=== PATIENT | female | born 1980 | race Caucasian/White ===

== ENCOUNTER 2017-03-31 22:13 | Emergency (ER) | payer MEDICAID ==
[2017-03-31] MEDS ORDERED: SODIUM CHLORIDE 0.9% 1,000 ML IV ONE (23:01)
[2017-03-31] MEDS ORDERED: ONDANSETRON 4 MG ODT STARTER PACK 2 TAB BTL PO STA (23:01)
[2017-03-31] MEDS ORDERED: ORPHENADRINE 30 MG/ML 2 ML VIAL IVP STA (23:01)
[2017-03-31] MEDS ORDERED: KETOROLAC 30 MG/ML 1 ML VIAL IVP STA (23:01)
[2017-03-31] MEDS: SODIUM CHLORIDE 0.9% 1,000 ML IV SCH (23:23)
[2017-03-31 23:43] LABS: Basophils % (A) 1 %; CH 29.2; CHCM 34.3; Eosinophils % (A) 0 %; HCT 43.4 % (34.0-46.0); HGB 14.4 gm/dL (11.4-16.0); Luc # (Auto) 0.13; Luc % (Auto) 2; Lymphocytes # (A) 0.8 k/uL (1.0-4.8); Lymphocytes % (A) 12 %; MCH 28.5 pg (25.0-35.0); MCHC 33.2 g/dL (31.0-37.0); MCV 85.8 fL (80.0-100.0); Monocytes # (A) 0.3 k/uL (0-1.0); Monocytes % (A) 5 %; Neutrophils # (A) 5.1 k/uL (1.3-7.7); Neutrophils % (A) 80 %; RBC 5.06 m/uL (3.80-5.40); RDW 13.1 % (11.5-15.5); WBC 6.4 k/uL (3.8-10.6); WBC (Perox) 6.22
[2017-03-31 23:54] LABS: ALT 33 U/L (9-52); AST 21 U/L (14-36); Alkaline Phosphatase 122 U/L (38-126); Anion Gap 12 mmol/L; Blood Urea Nitrogen 11 mg/dL (7-17); Calcium 9.6 mg/dL (8.4-10.2); Carbon Dioxide 20 mmol/L (22-30); Chloride 110 mmol/L (98-107); Glucose 104 mg/dL (74-99); Non-African American GFR(MDRD) >60 (>60 ml/min/1.73 sqM); Potassium 4.3 mmol/L (3.5-5.1); Sodium 142 mmol/L (137-145); Total Bilirubin 0.4 mg/dL (0.2-1.3); Total Protein 8.2 g/dL (6.3-8.2)
[2017-04-01] MEDS ORDERED: ONDANSETRON 4 MG ODT STARTER PACK 2 TAB BTL PO STA (00:07)
--- NOTE | 2017-04-01 00:07 | ED ---
Headache HPI - General Chief Complaint: Headache Stated Complaint: Migraine Time Seen by Provider: 03/31/17 22:31 Source: RN notes reviewed, old records reviewed Mode of arrival: ambulatory Limitations: no limitations - History of Present Illness Initial Comments: This is a pleasant 36 year old female with chief complaint of migraine headache for 2 days. She states she has a history of MS, and sees her neurologist Dr. Ho. Patient states that she does not want any imaging studies today, she states that she has a MRI scheduled in a few weeks. She reports vomiting and nausea. she states that the headache is over the frontal lobe and around left parietal region. Denies any fever or chills. She states that she gets these migraines very common, and usually they are resolved with toradol and zofran. Patient denies having any nausea medication at home. - Related Data Home Medications Medication Instructions Recorded Confirmed Butalb/Acetaminophen/Caffeine 1 - 2 tab PO Q6H PRN 04/26/16 03/31/17 [Fioricet 50-325-40 mg Tablet] Lacosamide [Vimpat] 100 mg PO BID 04/26/16 03/31/17 Venlafaxine HCl [Venlafaxine HCl 75 mg PO DAILY 04/26/16 03/31/17 ER] Levothyroxine Sodium [Synthroid] 25 mcg PO DAILY 07/09/16 03/31/17 SUMAtriptan SUCCINATE [Imitrex] 4 mg SQ DIRECTED PRN 07/09/16 03/31/17 Sodium Chloride [[place]] 1 spray EA NOSTRIL Q8H PRN 07/09/16 03/31/17 Verapamil HCl [Verapamil ER] 120 mg PO HS 07/09/16 03/31/17 Previous Rx's Medication Instructions Recorded Albuterol Nebulized [Ventolin 2.5 mg INHALATION Q6H #25 nebu 07/09/16 Nebulized] Ondansetron Odt [Zofran Odt] 4 mg PO Q8HR PRN #12 tab 04/01/17 Allergies Allergy/AdvReac Type Severity Reaction Status Date / Time tramadol Allergy Rapid Verified 07/09/16 15:12 Heart Rate Review of Systems ROS Statement: Those systems with pertinent positive or pertinent negative responses have been documented in the HPI. ROS Other: All systems not noted in ROS Statement are negative. Constitutional: Denies: fever, chills Eyes: Denies: eye pain ENT: Denies: ear pain, throat pain Respiratory: Denies: cough, dyspnea Cardiovascular: Reports: chest pain. Denies: palpitations Endocrine: Denies: fatigue, heat or cold intolerance Gastrointestinal: Reports: nausea, vomiting. Denies: abdominal pain Genitourinary: Denies: urgency, dysuria Musculoskeletal: Denies: back pain Skin: Denies: rash, lesions Neurological: Reports: headache. Denies: weakness, numbness, paresthesias, confusion, abnormal gait, vertigo Psychiatric: Denies: anxiety, depression Hematological/Lymphatic: Denies: easy bleeding Past Medical History Past Medical History: Asthma Additional Past Medical History / Comment(s): Sjogrens, migraines History of Any Multi-Drug Resistant Organisms: None Reported Past Surgical History: Cholecystectomy, Orthopedic Surgery Past Psychological History: No Psychological Hx Reported Smoking Status: Never smoker Past Alcohol Use History: None Reported Past Drug Use History: None Reported General Exam Limitations: no limitations General appearance: alert, in no apparent distress Head exam: Present: atraumatic, normocephalic, normal inspection Eye exam: Present: normal appearance, PERRL, EOMI. Absent: scleral icterus, conjunctival injection, periorbital swelling Pupils: Present: normal accommodation. Absent: irregular ENT exam: Present: normal exam, mucous membranes moist Neck exam: Present: normal inspection. Absent: tenderness, meningismus, lymphadenopathy Respiratory exam: Present: normal lung sounds bilaterally. Absent: respiratory distress, wheezes, rales, rhonchi, stridor Cardiovascular Exam: Present: regular rate, normal rhythm, normal heart sounds. Absent: systolic murmur, diastolic murmur, rubs, gallop, clicks GI/Abdominal exam: Present: soft, normal bowel sounds. Absent: distended, tenderness, guarding, rebound, rigid Extremities exam: Present: normal inspection, full ROM, normal capillary refill. Absent: tenderness, pedal edema, joint swelling, calf tenderness Back exam: Present: normal inspection Neurological exam: Present: alert, oriented X3, CN II-XII intact Psychiatric exam: Present: normal affect, normal mood Skin exam: Present: warm, dry, intact, normal color. Absent: rash Course Vital Signs 03/31/17 04/01/17 22:19 00:22 Temperature 98.5 F 98.3 F Pulse Rate 86 82 Respiratory 20 16 Rate Blood Pressure 136/72 116/76 O2 Sat by Pulse 98 96 Oximetry Medical Decision Making - Medical Decision Making This is a pleasant 36 year old female with chief complaint of migraine headache for 2 days. She states she has a history of MS, and sees her neurologist Dr. Ho. Patient states that she does not want any imaging studies today, she states that she has a MRI scheduled in a few weeks. She reports vomiting and nausea. she states that the headache is over the frontal lobe and around left parietal region. Denies any fever or chills. She states that she gets these migraines very common, and usually they are resolved with toradol and zofran. Patient denies having any nausea medication at home. Patient given IV fuids, toradol, and zofran and norflex. She states that she feels much better. She has no neurological deficits. Patient aayush be discharged with nausea medication, and advised to follow up with neurologist. PAtient agrees to treatment plana nd will comply. - Lab Data Result diagrams: 03/31/17 23:19 03/31/17 23:19 Lab Results 03/31/17 03/31/17 Range/Units 23:19 23:19 WBC 6.4 (3.8-10.6) k/uL RBC 5.06 (3.80-5.40) m/uL Hgb 14.4 (11.4-16.0) gm/dL Hct 43.4 (34.0-46.0) % MCV 85.8 (80.0-100.0) fL MCH 28.5 (25.0-35.0) pg MCHC 33.2 (31.0-37.0) g/dL RDW 13.1 (11.5-15.5) % Plt Count 263 (150-450) k/uL Neutrophils % 80 % Lymphocytes % 12 % Monocytes % 5 % Eosinophils % 0 % Basophils % 1 % Neutrophils # 5.1 (1.3-7.7) k/uL Lymphocytes # 0.8 L (1.0-4.8) k/uL Monocytes # 0.3 (0-1.0) k/uL Eosinophils # 0.0 (0-0.7) k/uL Basophils # 0.0 (0-0.2) k/uL Sodium 142 (137-145) mmol/L Potassium 4.3 (3.5-5.1) mmol/L Chloride 110 H (98-107) mmol/L Carbon Dioxide 20 L (22-30) mmol/L Anion Gap 12 mmol/L BUN 11 (7-17) mg/dL Creatinine 0.60 (0.52-1.04) mg/dL Est GFR (MDRD) Af Amer >60 (>60 ml/min/1.73 sqM) Est GFR (MDRD) Non-Af >60 (>60 ml/min/1.73 sqM) Glucose 104 H (74-99) mg/dL Calcium 9.6 (8.4-10.2) mg/dL Total Bilirubin 0.4 (0.2-1.3) mg/dL AST 21 (14-36) U/L ALT 33 (9-52) U/L Alkaline Phosphatase 122 (38-126) U/L Total Protein 8.2 (6.3-8.2) g/dL Albumin 4.5 (3.5-5.0) g/dL Disposition Clinical Impression: Migraine, Nausea Disposition: HOME SELF-CARE Condition: Good Instructions: Acute Headache (ED) Additional Instructions: Patient advised to follow up with her neurologist. Take the nausea medication as directed. Return to the emergency department if any alarming signs or symptoms occur. Prescriptions: Ondansetron Odt [Zofran Odt] 4 mg PO Q8HR PRN #12 tab PRN Reason: Nausea Referrals: Ras Wylie MD [Primary Care Provider] - 1-2 days Time of Disposition: 00:05
[2017-04-01] MEDS: SODIUM CHLORIDE 0.9% 1,000 ML IV SCH (00:19)
[2017-04-01 00:28] VITALS: BP 116/76; PULSE 82; RESP 16; TEMP 98.3
== END 2017-04-01 00:29 | disposition home or self-care (01) ==
LOC: EC 22:13
DX: G43.909 Migraine, unspecified, not intractable, without status migrainosus (principal); R11.0 Nausea; Z88.6 Allergy status to analgesic agent; Z79.899 Other long term (current) drug therapy
CPT/HCPCS: 99284; 96374; 96375; 96361; 80053; 36415; 85025; J2360; J1885; S0119 ×2

== ENCOUNTER 2017-04-08 15:12 | Emergency (ER) | payer MEDICAID ==
--- NOTE | 2017-04-08 15:49 | XR ---
EXAMINATION TYPE: XR knee complete RT DATE OF EXAM: 04/08/2017 3:42 PM CLINICAL HISTORY: Right knee injury getting off horse. TECHNIQUE: Three views of the right knee are obtained. COMPARISON: None. FINDINGS: There is no acute fracture/dislocation evident in right knee. The tri-compartment joint s paces appear within normal limits. Increased density suprapatellar bursa is suspicious for small to m oderate-sized joint effusion, nonspecific finding. A fabella is noted. IMPRESSION: There is no acute fracture or dislocation in the right knee. Probable moderate size supr apatellar joint effusion, nonspecific finding.
[2017-04-08 15:54] VITALS: BP 120/76; PULSE 110; RESP 16; TEMP 99.1
--- NOTE | 2017-04-08 15:54 | ED ---
Lower Extremity Injury HPI - General Stated Complaint: rt knee injury Time Seen by Provider: 04/08/17 15:29 Source: patient, RN notes reviewed Mode of arrival: wheelchair Limitations: no limitations - History of Present Illness Initial Comments: 36-year-old female presents emergency Department chief complaint right knee pain. Patient states she was dismounting off her horse landed on her right leg states that her patella sublux. Patient states that she try to stand back up and it happened again. She states that she cannot bear weight on it secondary to pain this time. Patient states that she's had problems with her left knee in the past nothing with her right knee. Patient states is swollen denies any ecchymosis. No paresthesias. - Related Data Home Medications Medication Instructions Recorded Confirmed Butalb/Acetaminophen/Caffeine 1 - 2 tab PO Q6H PRN 04/26/16 04/08/17 [Fioricet 50-325-40 mg Tablet] Lacosamide [Vimpat] 100 mg PO BID 04/26/16 04/08/17 Venlafaxine HCl [Venlafaxine HCl 75 mg PO DAILY 04/26/16 04/08/17 ER] Levothyroxine Sodium [Synthroid] 25 mcg PO DAILY 07/09/16 04/08/17 SUMAtriptan SUCCINATE [Imitrex] 4 mg SQ DIRECTED PRN 07/09/16 04/08/17 Sodium Chloride [[place]] 1 spray EA NOSTRIL Q8H PRN 07/09/16 04/08/17 Verapamil HCl [Verapamil ER] 120 mg PO HS 07/09/16 04/08/17 Previous Rx's Medication Instructions Recorded Albuterol Nebulized [Ventolin 2.5 mg INHALATION Q6H #25 nebu 07/09/16 Nebulized] Ondansetron Odt [Zofran Odt] 4 mg PO Q8HR PRN #12 tab 04/01/17 Hydrocodone/Acetaminophen [[place] 1 tab PO Q6HR PRN #20 tab 04/08/17 5-325] Allergies Allergy/AdvReac Type Severity Reaction Status Date / Time tramadol Allergy Rapid Verified 04/08/17 15:39 Heart Rate Review of Systems ROS Statement: Those systems with pertinent positive or pertinent negative responses have been documented in the HPI. ROS Other: All systems not noted in ROS Statement are negative. Past Medical History Past Medical History: Asthma Additional Past Medical History / Comment(s): Sjogrens, migraines History of Any Multi-Drug Resistant Organisms: None Reported Past Surgical History: Cholecystectomy, Orthopedic Surgery Past Psychological History: No Psychological Hx Reported Smoking Status: Never smoker Past Alcohol Use History: None Reported Past Drug Use History: None Reported General Exam Limitations: no limitations General appearance: alert, in no apparent distress Respiratory exam: Present: normal lung sounds bilaterally. Absent: respiratory distress, wheezes, rales, rhonchi, stridor Cardiovascular Exam: Present: regular rate, normal rhythm, normal heart sounds. Absent: systolic murmur, diastolic murmur, rubs, gallop, clicks Extremities exam: Present: other (Right knee there is mild edema noted neurovascular intact patient has pain with range of motion pain with full extension. There is moderate discomfort with patellar movement though no true laxity noted of the knee ) Skin exam: Present: warm, dry, intact, normal color. Absent: rash Course Vital Signs 04/08/17 15:30 Temperature 99.1 F Pulse Rate 110 H Respiratory 16 Rate Blood Pressure 120/76 O2 Sat by Pulse 98 Oximetry Medical Decision Making - Medical Decision Making 36-year-old female presented emergency from for right knee pain. Patient most likely had a patellar subluxation. Patient does have moderate joint effusion noted. Patient placed in knee immobilizer follow-up with orthopedic doctor if no improvement. Patient be given pain medication advised to rest ice and elevate. Return parameters were discussed. Disposition Clinical Impression: Subluxation of right patella, Right knee sprain Disposition: HOME SELF-CARE Condition: Stable Instructions: Patellar Dislocation (ED) Additional Instructions: Please return to the Emergency Department if symptoms worsen or any other concerns. Prescriptions: Hydrocodone/Acetaminophen [[place] 5-325] 1 tab PO Q6HR PRN #20 tab PRN Reason: Pain Time of Disposition: 16:01
== END 2017-04-08 16:15 | disposition home or self-care (01) ==
LOC: EC 15:12
DX: S83.001A Unspecified subluxation of right patella, initial encounter (principal); Z79.899 Other long term (current) drug therapy; Z88.6 Allergy status to analgesic agent; V80.010A Animal-rider injured by fall from or being thrown from horse in noncollision accident, initial encounter; Y92.89 Other specified places as the place of occurrence of the external cause; Y93.89 Activity, other specified
CPT/HCPCS: 99283; 73562; L1830

== ENCOUNTER → 2017-05-01 | Outpatient (CLI) | payer MEDICAID ==
--- NOTE | 2017-05-01 21:47 | MR ---
EXAMINATION TYPE: MR brain wo/w con DATE OF EXAM: 05/01/2017 COMPARISON: Prior MRI brain June 16, 2016. HISTORY: White matter changes per order. Additional symptoms of migraine headaches along with dizzine ss or hearing loss rule out multiple sclerosis per patient. TECHNIQUE: Multiplanar, multisequence images of the brain and brainstem is performed without and with IV contras t, utilizing 20 mL intravenous MultiHance gadolinium contrast is administered intravenously. Demyeli nating disease protocol with additional Sagittal Flair sequence performed. FINDINGS: T2 Lesions Present : Yes Approximate Number of Lesions: Approximately 10-15 Locations Identified : Scattered deep and periventricular Size of Reference Lesion(s): 1. 0.9 cm x 0.5 cm x 0.3 cm on axial image 19 and sagittal image 11 left frontal periventricular les ion stable 2 0.4 cm x 0.3 cm x 0.4 cm on axial image 22 and sagittal image 20 right frontal lesion stable. Enhancing Lesion(s) Present: No Change from Prior: Stable Diffusion weighted images demonstrate no evidence of a recent infarct or other diffusion abnormality. There is no worrisome extra-axial fluid collection. The ventricular system and cisternal spaces ar e normal in size and appearance. The brain volume is age appropriate. Midline structures demonstrate normal morphology. The craniocervical junction appears within normal limits. Post contrast images demonstrate no abnormal enhancement. The dural venous sinuses appear pa tent. The visualized sinuses are clear and the globes are intact. IMPRESSION: Mild nonspecific white matter changes redemonstrated may be product of multiple sclerosis , other etiologies not excluded, no new or enhancing lesions are evident. No significant change from prior.
== END | disposition home or self-care (01) ==
LOC: RADMRIMAIN 20:17
PROVIDERS: ATTEND Psychiatry & Neurology Neurology
DX: R90.82 White matter disease, unspecified (principal)
CPT/HCPCS: 70553; A9577

== ENCOUNTER → 2017-05-01 | Outpatient (CLI) | payer MEDICAID ==
--- NOTE | 2017-05-01 21:55 | MR ---
EXAMINATION TYPE: MR knee RT wo con DATE OF EXAM: 05/01/2017 COMPARISON: Right knee x-ray April 08, 2017. HISTORY: Pain entire Right pain and swelling Since injury April 08, 2017, ACL tear per order. TECHNIQUE: Multiplanar, multisequence images of the knee is performed without IV contrast. FINDINGS: MEDIAL MENISCUS: Anterior horn is intact without tear. Oblique increased signal posterior horn of med ial meniscus does not extend to articular surface. LATERAL MENISCUS: Anterior and posterior horns are intact without tear. CRUCIATE LIGAMENTS: The posterior cruciate ligament is intact and unremarkable. There is complete tea r of the anterior cruciate ligament from proximal pole with retracted fragment extending posteriorly seen best on sagittal images 13 through 19 posterior to the posterior horn of lateral meniscus. Porti on of wavy remnant distal fibers are noted on sagittal image 16. COLLATERAL LIGAMENTS: The medial collateral ligament and lateral collateral ligament complex are inta ct and unremarkable. Mild fluid signal surrounds medial collateral ligament. EXTENSOR MECHANISM: Visualized quadriceps and patellar tendons are intact. EFFUSION: There is large suprapatellar joint effusion. POPLITEAL CYST: No popliteal/helm cyst. TRICOMPARTMENT SPACES: Tricompartment joint spaces are fairly well-maintained. No significant spurrin g is seen. CARTILAGE: Tricompartment articular cartilage is preserved. BONE MARROW SIGNAL: There is focal linear T1 hypointense signal involving the posterior medial tibial plateau seen best on sagittal image 11 confirmed on coronal image 24 consistent with nondisplaced in tra-articular tear. There is significant osseous contusion or bone marrow edema at this level extendi ng to involve majority of the tibia through the metadiaphysis. There is additional area of osseous contusion or bone marrow edema involving the distal lateral femor al condyle lateral aspect. There is small focal area of osseous contusion medial aspect distal medial femoral epicondyle seen be st coronal image 20 confirmed axial image 13 posteriorly. OTHER: There is additional well-defined 1.8 cm lesion posteriorly distal femoral metaphysis that is w ell-defined of T1 hypointensity and T2 hyperintensity favoring benign etiology such as enchondroma, n o corresponding lesion is clearly seen on recent radiographs. IMPRESSION: 1. Complete ACL tear is confirmed. 2. Mild MCL sprain injury. 3. Intrasubstance tear posterior horn of medial meniscus. 4. Nondisplaced intra-articular linear fracture posterior aspect medial tibial plateau with significa nt surrounding osseous contusion or edema involving the visualized tibia. 5. Additional areas of osseous contusion or bone marrow edema involving the lateral femoral condyle a nd medial aspect posterior distal femoral epicondyle. 4. Large suprapatellar joint effusion.
== END | disposition home or self-care (01) ==
LOC: RADMRIMAIN 16:31
PROVIDERS: ATTEND Orthopaedic Surgery
DX: S83.511A Sprain of anterior cruciate ligament of right knee, initial encounter (principal); S83.411A Sprain of medial collateral ligament of right knee, initial encounter; S83.241A Other tear of medial meniscus, current injury, right knee, initial encounter; S82.291A Other fracture of shaft of right tibia, initial encounter for closed fracture

== ENCOUNTER 2017-05-26 04:45 | Emergency (ER) | payer MEDICAID ==
[2017-05-26 04:53] VITALS: RESP 18
--- NOTE | 2017-05-26 05:02 | ED ---
General Adult HPI - General Chief complaint: Headache Stated complaint: HEADACHE Time Seen by Provider: 05/26/17 04:55 Source: patient, RN notes reviewed, old records reviewed Mode of arrival: ambulatory Limitations: no limitations - History of Present Illness Initial comments: This is a 37-year-old female here for evaluation. Patient is for evaluation of headache. History of chronic migraines. Attempts to take abortive medication tonight with no success. Patient decided to inject medication. Patient's headache is consistent from prior migraines throbbing left-sided headache. Mild nausea no vomiting - Related Data Home Medications Medication Instructions Recorded Confirmed Butalb/Acetaminophen/Caffeine 1 - 2 tab PO Q6H PRN 04/26/16 04/08/17 [Fioricet 50-325-40 mg Tablet] Lacosamide [Vimpat] 100 mg PO BID 04/26/16 04/08/17 Venlafaxine HCl [Venlafaxine HCl 75 mg PO DAILY 04/26/16 04/08/17 ER] Levothyroxine Sodium [Synthroid] 25 mcg PO DAILY 07/09/16 04/08/17 SUMAtriptan SUCCINATE [Imitrex] 4 mg SQ DIRECTED PRN 07/09/16 04/08/17 Sodium Chloride [[place]] 1 spray EA NOSTRIL Q8H PRN 07/09/16 04/08/17 Verapamil HCl [Verapamil ER] 120 mg PO HS 07/09/16 04/08/17 Previous Rx's Medication Instructions Recorded Albuterol Nebulized [Ventolin 2.5 mg INHALATION Q6H #25 nebu 07/09/16 Nebulized] Ondansetron Odt [Zofran Odt] 4 mg PO Q8HR PRN #12 tab 04/01/17 Hydrocodone/Acetaminophen [[employer] 1 tab PO Q6HR PRN #20 tab 04/08/17 5-325] Allergies Allergy/AdvReac Type Severity Reaction Status Date / Time tramadol Allergy Rapid Verified 05/26/17 04:54 Heart Rate Review of Systems ROS Statement: Those systems with pertinent positive or pertinent negative responses have been documented in the HPI. ROS Other: All systems not noted in ROS Statement are negative. Past Medical History Past Medical History: Asthma Additional Past Medical History / Comment(s): Sjogrens, migraines History of Any Multi-Drug Resistant Organisms: None Reported Past Surgical History: Cholecystectomy, Orthopedic Surgery Past Psychological History: No Psychological Hx Reported Smoking Status: Never smoker Past Alcohol Use History: None Reported Past Drug Use History: None Reported General Exam Limitations: no limitations General appearance: alert, in no apparent distress Head exam: Present: atraumatic, normocephalic, normal inspection Eye exam: Present: normal appearance, PERRL, EOMI. Absent: scleral icterus, conjunctival injection, periorbital swelling ENT exam: Present: normal exam, mucous membranes moist Neck exam: Present: normal inspection. Absent: tenderness, meningismus, lymphadenopathy Respiratory exam: Present: normal lung sounds bilaterally. Absent: respiratory distress, wheezes, rales, rhonchi, stridor Cardiovascular Exam: Present: regular rate, normal rhythm, normal heart sounds. Absent: systolic murmur, diastolic murmur, rubs, gallop, clicks GI/Abdominal exam: Present: soft, normal bowel sounds. Absent: distended, tenderness, guarding, rebound, rigid Extremities exam: Present: normal inspection, full ROM, normal capillary refill. Absent: tenderness, pedal edema, joint swelling, calf tenderness Back exam: Present: normal inspection Neurological exam: Present: alert, oriented X3, CN II-XII intact Psychiatric exam: Present: normal affect, normal mood Skin exam: Present: warm, dry, intact, normal color. Absent: rash Course Vital Signs 05/26/17 04:49 Temperature 97.9 F Pulse Rate 81 Respiratory 18 Rate Blood Pressure 148/97 O2 Sat by Pulse 97 Oximetry - Reevaluation(s) Reevaluation #1: 05/26/17 05:08 Headache resolved Medical Decision Making - Medical Decision Making 37 female here for evaluation regarding headache, migraine headache, typical in nature. Patient feeling good at this time, okay for discharge Disposition Clinical Impression: Migraine Disposition: HOME SELF-CARE Condition: Good Instructions: Acute Headache (ED) Referrals: Ras Wylie MD [Primary Care Provider] - 1-2 days
[2017-05-26] MEDS ORDERED: SODIUM CHLORIDE 0.9% 1,000 ML IV STA (05:03)
[2017-05-26] MEDS ORDERED: KETOROLAC 30 MG/ML 1 ML VIAL IVP STA (05:03)
[2017-05-26] MEDS ORDERED: ONDANSETRON 4 MG/2 ML VIAL IVP STA (05:07)
[2017-05-26] MEDS ORDERED: METOCLOPRAMIDE 5 MG/ML 2 ML VIAL IVP STA (05:07)
[2017-05-26 06:21] VITALS: BP 142/82; PULSE 67; TEMP 98.2
== END 2017-05-26 06:38 | disposition home or self-care (01) ==
LOC: EC 04:45
DX: G43.909 Migraine, unspecified, not intractable, without status migrainosus (principal); Z88.5 Allergy status to narcotic agent; Z79.899 Other long term (current) drug therapy
CPT/HCPCS: 99284; 96374; 96375 ×2; 96361; J2765; J2405; J1885

== ENCOUNTER → 2018-02-20 | Outpatient (CLI) | payer MEDICAID ==
[2018-02-20 08:05] LABS: Basophils # (A) 0.1 k/uL (0-0.2); Basophils % (A) 1 %; Eosinophils # (A) 0.3 k/uL (0-0.7); Eosinophils % (A) 3 %; HCT 37.6 % (34.0-46.0); Lymphocytes % (A) 26 %; MCH 28.3 pg (25.0-35.0); MCHC 34.4 g/dL (31.0-37.0); MCV 82.1 fL (80.0-100.0); Mean Platelet Volume 6.8; Monocytes # (A) 0.7 k/uL (0-1.0); Monocytes % (A) 9 %; Neutrophils # (A) 4.4 k/uL (1.3-7.7); Neutrophils % (A) 57 %; Platelet Count 285 k/uL (150-450); RBC 4.58 m/uL (3.80-5.40); RDW 13.2 % (11.5-15.5); WBC 7.7 k/uL (3.8-10.6)
[2018-02-20 11:15] LABS: ALT 35 U/L (9-52); AST 29 U/L (14-36); Albumin 4.2 g/dL (3.5-5.0); Alkaline Phosphatase 103 U/L (38-126); Anion Gap 15 mmol/L; Blood Urea Nitrogen 13 mg/dL (7-17); Calcium 9.7 mg/dL (8.4-10.2); Carbon Dioxide 20 mmol/L (22-30); Chloride 107 mmol/L (98-107); Glucose 93 mg/dL (74-99); Potassium 4.3 mmol/L (3.5-5.1); Sodium 142 mmol/L (137-145); Total Bilirubin 0.1 mg/dL (0.2-1.3); Total Protein 7.6 g/dL (6.3-8.2)
[2018-02-20 16:14] LABS: Vitamin D 25 Hydroxy 18.5 ng/mL (30.0-100.0)
[2018-02-20 18:48] LABS: Hemoglobin A1C 5.1 % (4.0-6.0)
[2018-02-21 10:20] LABS: ANA Pattern Speckled
== END | disposition home or self-care (01) ==
LOC: LABWHC1 07:30
PROVIDERS: ATTEND Nurse Practitioner Acute Care
DX: E55.9 Vitamin D deficiency, unspecified (principal); E03.9 Hypothyroidism, unspecified; R53.83 Other fatigue; F41.9 Anxiety disorder, unspecified; B37.2 Candidiasis of skin and nail; G47.00 Insomnia, unspecified
CPT/HCPCS: 36415; 80053; 82306; 82607; 83036; 84207; 84443; 84481; 85025; 86038; 86039

== ENCOUNTER 2018-02-26 01:56 | Emergency (ER) | payer MEDICAID ==
[2018-02-26 02:07] VITALS: RESP 16
[2018-02-26] MEDS ORDERED: diphenhydrAMINE 50 MG/ML 1 ML VIAL IVP STA (02:16)
[2018-02-26] MEDS ORDERED: SODIUM CHLORIDE 0.9% 1,000 ML IV STA (02:16)
[2018-02-26] MEDS ORDERED: KETOROLAC 30 MG/ML 1 ML VIAL IVP STA (02:16)
[2018-02-26] MEDS ORDERED: METOCLOPRAMIDE 5 MG/ML 2 ML VIAL IVP STA (02:16)
--- NOTE | 2018-02-26 02:21 | ED ---
Headache HPI - General Chief Complaint: Headache Stated Complaint: Migraine Time Seen by Provider: 02/26/18 02:11 Source: RN notes reviewed Mode of arrival: ambulatory Limitations: no limitations - History of Present Illness Initial Comments: This is a 37-year-old female who presents to the emergency department with chief complaint of migraine. Patient states that her current migraine is the same as all of her previous migraines. She does state that she sees a neurologist for her migraines and has yearly MRIs. Patient states that for the last couple of days she's been battling with this current migraine. She states that it starts behind her eyes and then travels to the left side of her head. Patient admits to associated nausea. Denies any vomiting or dizziness. Denies any falls, injuries or trauma. She states that she did take Imitrex at 10 AM yesterday and a Fioricet approximately 4 hours ago. She states that she continues to have symptoms. Denies fevers or chills, chest pain or shortness of breath, abdominal pain, diarrhea or constipation, dysuria or hematuria, numbness or tingling. - Related Data Home Medications Medication Instructions Recorded Confirmed Butalb/Acetaminophen/Caffeine 1 - 2 tab PO Q6H PRN 04/26/16 04/08/17 [Fioricet 50-325-40 mg Tablet] Lacosamide [Vimpat] 100 mg PO BID 04/26/16 04/08/17 Venlafaxine HCl [Venlafaxine HCl 75 mg PO DAILY 04/26/16 04/08/17 ER] Levothyroxine Sodium [Synthroid] 25 mcg PO DAILY 07/09/16 04/08/17 SUMAtriptan SUCCINATE [Imitrex] 4 mg SQ DIRECTED PRN 07/09/16 04/08/17 Sodium Chloride [Eddy] 1 spray EA NOSTRIL Q8H PRN 07/09/16 04/08/17 Verapamil HCl [Verapamil ER] 120 mg PO HS 07/09/16 04/08/17 Previous Rx's Medication Instructions Recorded Albuterol Nebulized [Ventolin 2.5 mg INHALATION Q6H #25 nebu 07/09/16 Nebulized] Ondansetron Odt [Zofran Odt] 4 mg PO Q8HR PRN #12 tab 04/01/17 Hydrocodone/Acetaminophen [[place] 1 tab PO Q6HR PRN #20 tab 04/08/17 5-325] Allergies Allergy/AdvReac Type Severity Reaction Status Date / Time Iodinated Contrast- Oral and Allergy Nausea & Verified 02/26/18 02:08 IV Dye Vomiting tramadol Allergy Rapid Verified 05/26/17 04:54 Heart Rate Review of Systems ROS Statement: Those systems with pertinent positive or pertinent negative responses have been documented in the HPI. ROS Other: All systems not noted in ROS Statement are negative. Past Medical History Past Medical History: Asthma, Musculoskeletal Disorder Additional Past Medical History / Comment(s): Sjogrens, migraines,MS History of Any Multi-Drug Resistant Organisms: None Reported Past Surgical History: Cholecystectomy, Orthopedic Surgery Past Psychological History: No Psychological Hx Reported Smoking Status: Never smoker Past Alcohol Use History: None Reported Past Drug Use History: None Reported General Exam - General Exam Comments Initial Comments: General: Awake and alert, well-developed; in no apparent distress. Sitting comfortably on ED stretcher. Mother is at bedside. HEENT: Head atraumatic, normocephalic. Pupils are equal, round and reactive to light. Extraocular movements intact. Oropharynx moist without erythema or exudate. Neck: Supple. Normal ROM. Cardiovascular: Regular rate and rhythm. No murmurs, rubs or gallops. Chest symmetrical. Respiratory: Lungs clear to auscultation bilaterally. No wheezes, rales or rhonchi. Normal respiratory effort with no use of accessory muscles. Musculoskeletal: Normal ROM, no tenderness bilateral upper and lower extremities. Ambulating normally. Skin: [place], warm and dry without rashes or lesions. Neurological: Alert and oriented x3. CN II-XII grossly intact. Speech is fluent and answers are appropriate. No focal neuro deficits. Psychiatric: Normal mood and affect. No overt signs of depression or anxiety noted. Limitations: no limitations Course Vital Signs 02/26/18 02:04 Temperature 97.0 F L Pulse Rate 83 Respiratory 16 Rate Blood Pressure 134/84 Medical Decision Making - Medical Decision Making This is a 37-year-old female who presents to the emergency department with chief complaint of migraine. Patient does have a history of migraines and states that her current migraine is the same as her previous ones. Denies any injuries, trauma or falls. Patient has been unable to get her symptoms under control with her at home medications of Imitrex and Fioricet. Patient given headache cocktail while in the emergency department. On reevaluation, patient states that her symptoms have much improved and she is ready to be discharged home. Patient's vital signs are stable and she is in no acute distress. She will be discharged home at this time. All questions answered. Disposition Clinical Impression: Migraine Disposition: HOME SELF-CARE Condition: Good Instructions: Migraine Headache (ED) Additional Instructions: Please follow up with primary care provider within 1-2 days. Please return to the emergency department with any new or concerning symptoms. Referrals: Ras Wylie MD [Primary Care Provider] - 1-2 days Time of Disposition: 02:58
[2018-02-26 03:10] VITALS: BP 127/66; PULSE 68; TEMP 98.4
== END 2018-02-26 03:12 | disposition home or self-care (01) ==
LOC: EC 01:56
DX: G43.909 Migraine, unspecified, not intractable, without status migrainosus (principal); Z79.899 Other long term (current) drug therapy; Z91.041 Radiographic dye allergy status; Z88.6 Allergy status to analgesic agent
CPT/HCPCS: 99283; 96374; 96375 ×2; J1200; J2765; J1885; 99284

== ENCOUNTER 2018-03-13 13:29 | Emergency (ER) | payer MEDICAID ==
[2018-03-13] MEDS ORDERED: METOCLOPRAMIDE 5 MG/ML 2 ML VIAL IVP STA (15:31)
[2018-03-13] MEDS ORDERED: SODIUM CHLORIDE 0.9% 500 ML IV ONE (15:31)
[2018-03-13] MEDS ORDERED: DEXAMETHASONE SOD PHOSPHATE 10 MG/ML 1 ML VIAL IV STA (15:31)
[2018-03-13] MEDS ORDERED: KETOROLAC 30 MG/ML 1 ML VIAL IVP STA (15:31)
[2018-03-13] MEDS ORDERED: diphenhydrAMINE 50 MG/ML 1 ML VIAL IVP STA (15:31)
--- NOTE | 2018-03-13 15:34 | ED ---
Headache HPI - General Chief Complaint: Headache Stated Complaint: migraine Time Seen by Provider: 03/13/18 15:26 Source: patient, RN notes reviewed Mode of arrival: ambulatory Limitations: no limitations - History of Present Illness Initial Comments: This is a 37-year-old female presents emergency Department chief complaint of migraine headache. Patient states that she has a history of migraines for a consistent with normal minor headache. She was given Toradol yesterday states it did help the headache returned. She states this normally what happens with IM Toradol. She admits to some nausea and light sensitivity. Patient denies any fever, chills, neck pain, neck stiffness, chest pain or shortness breath. She states that she did try also states that she had no relief. Patient states this is not the worse headache of life she's had no other associated symptoms. - Related Data Home Medications Medication Instructions Recorded Confirmed Butalb/Acetaminophen/Caffeine 1 - 2 tab PO Q6H PRN 04/26/16 03/13/18 [Fioricet 50-325-40 mg Tablet] Lacosamide [Vimpat] 100 mg PO BID 04/26/16 03/13/18 SUMAtriptan SUCCINATE [Imitrex] 4 mg SQ DIRECTED PRN 07/09/16 03/13/18 Ergocalciferol (Vitamin D2) 50,000 unit PO Q7D 03/13/18 03/13/18 [Vitamin D2] Medroxyprogesterone Acetate 150 mg IM Q90D 03/13/18 03/13/18 [Depo-Provera] Propranolol HCl [Inderal LA] 1 cap PO DAILY 03/13/18 03/13/18 Venlafaxine HCl [Effexor XR] 150 mg PO DAILY 03/13/18 03/13/18 Allergies Allergy/AdvReac Type Severity Reaction Status Date / Time Iodinated Contrast- Oral and Allergy Nausea & Verified 03/13/18 16:11 IV Dye Vomiting tramadol Allergy Rapid Verified 03/13/18 16:11 Heart Rate Review of Systems ROS Statement: Those systems with pertinent positive or pertinent negative responses have been documented in the HPI. ROS Other: All systems not noted in ROS Statement are negative. Past Medical History Past Medical History: Asthma, Musculoskeletal Disorder Additional Past Medical History / Comment(s): Sjogrens, migraines,MS History of Any Multi-Drug Resistant Organisms: None Reported Past Surgical History: Cholecystectomy, Orthopedic Surgery Past Psychological History: No Psychological Hx Reported Smoking Status: Never smoker Past Alcohol Use History: None Reported Past Drug Use History: None Reported General Exam Limitations: no limitations General appearance: alert, in no apparent distress Head exam: Present: atraumatic, normocephalic, normal inspection Eye exam: Present: normal appearance, PERRL, EOMI. Absent: scleral icterus, conjunctival injection, periorbital swelling ENT exam: Present: normal exam, normal oropharynx, mucous membranes moist Neck exam: Present: normal inspection, full ROM. Absent: tenderness, meningismus, lymphadenopathy Respiratory exam: Present: normal lung sounds bilaterally. Absent: respiratory distress, wheezes, rales, rhonchi, stridor Cardiovascular Exam: Present: regular rate, normal rhythm, normal heart sounds. Absent: systolic murmur, diastolic murmur, rubs, gallop, clicks Neurological exam: Present: alert, oriented X3, CN II-XII intact, reflexes normal. Absent: motor sensory deficit Skin exam: Present: warm, dry, intact, normal color. Absent: rash Course Vital Signs 03/13/18 13:31 Temperature 98.2 F Pulse Rate 101 H Respiratory 20 Rate Blood Pressure 137/80 O2 Sat by Pulse 98 Oximetry Medical Decision Making - Medical Decision Making 37-year-old female presented for headache. Patient feels improved after IV meds and hydration. Patient will be discharged. Disposition Clinical Impression: Migraine Disposition: HOME SELF-CARE Condition: Stable Instructions: Acute Headache (ED) Additional Instructions: Please return to the Emergency Department if symptoms worsen or any other concerns. Is patient prescribed a controlled substance at d/c from ED?: No Referrals: Ras Wylie MD [Primary Care Provider] - 1-2 days Time of Disposition: 16:43
[2018-03-13 16:57] VITALS: BP 122/73; PULSE 100; RESP 18; TEMP 98.3
== END 2018-03-13 16:57 | disposition home or self-care (01) ==
LOC: EC 13:29
DX: G43.909 Migraine, unspecified, not intractable, without status migrainosus (principal); Z79.52 Long term (current) use of systemic steroids; Z79.899 Other long term (current) drug therapy; Z88.5 Allergy status to narcotic agent; Z91.041 Radiographic dye allergy status
CPT/HCPCS: 99283; 96374; 96375 ×3; 96361; J1200; J1100; J2765; J1885

== ENCOUNTER → 2018-03-24 | Outpatient (CLI) | payer MEDICAID ==
[2018-03-24 07:52] LABS: Basophils % (A) 1 %; Eosinophils # (A) 0.2 k/uL (0-0.7); Eosinophils % (A) 2 %; HCT 40.5 % (34.0-46.0); HGB 13.2 gm/dL (11.4-16.0); Lymphocytes # (A) 2.6 k/uL (1.0-4.8); Lymphocytes % (A) 36 %; MCH 27.4 pg (25.0-35.0); MCHC 32.6 g/dL (31.0-37.0); Mean Platelet Volume 7.6; Monocytes # (A) 0.6 k/uL (0-1.0); Monocytes % (A) 9 %; Neutrophils # (A) 3.6 k/uL (1.3-7.7); Neutrophils % (A) 51 %; Platelet Count 241 k/uL (150-450); RBC 4.82 m/uL (3.80-5.40); RDW 13.7 % (11.5-15.5); WBC 7.2 k/uL (3.8-10.6)
[2018-03-24 08:06] LABS: Potassium 4.1 mmol/L (3.5-5.1)
== END | disposition home or self-care (01) ==
LOC: LABPAT 07:30
PROVIDERS: ATTEND Orthopaedic Surgery
DX: Z01.812 Encounter for preprocedural laboratory examination (principal); M23.611 Other spontaneous disruption of anterior cruciate ligament of right knee
CPT/HCPCS: 36415; 80051; 81025; 85025; 85610

== ENCOUNTER 2018-03-28 06:44 | Day surgery (SDC) | payer MEDICAID ==
--- NOTE | 2018-03-27 10:37 | HP ---
HISTORY AND PHYSICAL CHIEF COMPLAINT: Right knee pain and instability. 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 She notes her knee came out of place. Initially, she was seen in the emergency room and was followed by her primary care physician. She has had therapy for this. She notes persistent giving way and instability. She has had a difficult time with bracing because of skin irritation. She notes her pain and instability limits her normal function and activities. She has been taking ibuprofen for this. PAST MEDICAL HISTORY: Significant for asthma, hypertension, migraine, seizures, Sjogren syndrome and multiple sclerosis. PAST SURGICAL HISTORY: Significant for fixation of a left tibia fracture. CURRENT MEDICATIONS: 1. Depo-Provera. 2. Effexor. 3. Fioricet. 4. Imitrex. 5. Inderal. 6. Zofran. She has allergies to TRAMADOL and IV CONTRAST. FAMILY HISTORY: Significant for heart disease and cancer. SOCIAL HISTORY: Negative for current tobacco or alcohol use. 16 REVIEW OF SYSTEMS: Otherwise reviewed and is noncontributory. PHYSICAL EXAMINATION: On examination, the patient is approximately 5 foot 3, 225 pounds of endomorphic habitus. HEENT exam is nonfocal. Neck is supple. She has painless passive motion of her right hip. Straight leg raise is negative. Active motion right knee -4 to 125 degrees of flexion. She has a mild effusion. She is tender about the lateral joint line. Collaterals are stable, David is 1+ with a positive pivot shift. Meryl's is equivocal. She has genu valgum alignment. Her distal neurovascular exam appears intact in the right lower extremity. MRI report for the right knee from 05/11/2017 shows an ACL tear along with increased signal involving the posterior horn of the medial meniscus. IMPRESSION: 1. Right knee ACL tear with symptomatic instability. 2. Increased body mass index. RECOMMENDATIONS: I talked to the patient at length regarding her condition and treatment options. At this point, she notes persistent pain and instability that limit her normal function and activities despite conservative measures. After a thorough discussion, she opts to proceed with surgery. We will plan to proceed with arthroscopic evaluation with possible ACL reconstruction utilizing allograft bone, tendon bone. Risks and benefits were discussed at length in layman's terms. We will potentially perform that as an outpatient procedure. MMODL / IJN: [id number] /
[~2018-03-28 06:44] MED LIST: DEXAMETHASONE SOD PHOSPHATE 10 MG/ML 1 ML VIAL IV ONE; LACTATED RINGERS 1,000 ML IV SCH; LIDOCAINE 1% 20 ML VIAL (10MG/ML) FOR IV START INTRADERMA PRN; MIDAZOLAM 2 MG/2 ML VIAL IV PRN; MORPHINE SULFATE 2 MG/ML SYRINGE IV PRN; SCOPOLAMINE 1.5MG/72HR PATCH TRANSDERM ONE; ceFAZolin IN SWFI 2 GM/20 ML SYRINGE IVP ONE; fentaNYL (PF) 50 MCG/ML 2 ML AMP IV PRN
[2018-03-28] MEDS ORDERED: ONDANSETRON 4 MG/2 ML VIAL IVP ONE (07:18)
[2018-03-28] MEDS ORDERED: MORPHINE SULFATE 10 MG/ML SYRINGE ONE (08:04)
[2018-03-28] MEDS ORDERED: MIDAZOLAM 2 MG/2 ML VIAL ONE (08:04)
[2018-03-28] MEDS ORDERED: PROPOFOL 10 MG/ML 20 ML VIAL IV ONE (08:04)
[2018-03-28] MEDS ORDERED: LIDOCAINE 1% INJ 10MG/ML (20 ML MDV) ONE (08:04)
[2018-03-28] MEDS ORDERED: fentaNYL (PF) 50 MCG/ML 2 ML AMP ONE (08:04)
[2018-03-28] MEDS ORDERED: KETOROLAC 30 MG/ML 1 ML VIAL ONE (08:04)
[2018-03-28] MEDS ORDERED: SUCCINYLCHOLINE CHLORIDE 100 MG/5 ML SYR IV ONE (08:04)
[2018-03-28] MEDS ORDERED: EPINEPHrine (PF) 1 ML in SODIUM CHLORIDE 0.9% IRRIGATIO 3,000 ML IRRIGATION ONE ×8 (08:04)
[2018-03-28] MEDS ORDERED: ceFAZolin 1,000 MG in SODIUM CHLORIDE 0.9% 1,000 ML IRRIGATION ONE (08:42)
[2018-03-28] MEDS ORDERED: LACTATED RINGERS 1,000 ML IV ONE (08:55)
[2018-03-28 10:23] VITALS: TEMP 97.8
--- NOTE | 2018-03-28 10:29 | P.OP ---
Date of Procedure: 03/28/18 Preoperative Diagnosis: Right knee ACL rupture Postoperative Diagnosis: Right knee ACL rupture/posterior lateral meniscal tear Procedure(s) Performed: Right knee arthroscopic partial lateral meniscectomy/ACL reconstruction utilizing allograft bone tendon bone Implants: [employer] 8 x 23 mm femoral interference screw, 9 x 30 mm tibial interference screw Anesthesia: ERICK Surgeon: Sajan Baxter Estimated Blood Loss (ml): 10 Pathology: none sent Condition: stable Disposition: PACU Indications for Procedure: The patient's a 37-year-old female who presents with right knee pain and instability after a previous injury. Upon evaluation she was noted of evidence of ACL insufficiency. She did try conservative measures with persistence of her symptoms. A discussion of the risks and benefits of operative intervention versus continued conservative measures was made with the patient. She opted to proceed with surgery. Graft options to include autograft versus allograft were also discussed. The inherent risks of allograft were discussed and she opted to proceed with that. Other specific risks of surgery to include infection, neurovascular injury, development of blood clots, possible ligament rerupture and possible need for subsequent procedures was discussed. Informed consent was obtained. Operative Findings: As below Description of Procedure: The patient was brought to the operating room, and after induction of general anesthesia examined the right knee. Collaterals were stable, David was 1+ with a soft endpoint, pivot shift was positive, posterior drawer was negative. The right lower extremity was prepped and draped in normal fashion. A superior lateral portals made through a 3 mm skin incision superior and lateral to the patella. This was used for outflow. A lateral portals made through a 5 mm vertical skin incision lateral to the patella tendon above the joint line. Diagnostic arthroscopy was performed. A low anterior medial portal was made through a similar incision medial to the patella tendon above the joint line. On inspection of the medial compartment, no significant meniscal or articular cartilage pathology was noted. On inspection of the notch, the anterior cruciate ligament was ruptured off the lateral wall and scarred to the posterior cruciate ligament. This was debrided with motorized shaver. The soft tissue on the lateral wall was debrided with motorized shaver and electrocautery clearly defining the posterior wall. On inspection of the lateral compartment, a small flap tear involving the posterior most aspect of the lateral meniscus in the white-right junction was noted. This was debrided back to stable base with a motorized bur. The remaining lateral meniscus was stable and intact. On inspection the patellofemoral articulation, no significant cartilage pathology was noted. The graft was then prepared on the back table by my assistant case manager. A notchplasty was performed with a motorized canelo. A 7 mm [id number] guide was then placed in the 9:30 position. The guidepin was then passed with the knee hyperflexed. A 9 mm femoral drill was then inserted to 30 millimeters. The posterior wall was inspected and was intact. A suture was then placed for later graft insertion. The tibial guide was then placed anterior to the posterior cruciate ligament in line with the medial tibial spine. The tibial angle was 55. A 2 cm incision was made along the proximal medial tibia. Soft tissues were bluntly dissected. A 10 mm tibial drill was inserted entering the joint at the medial tibial spine. The soft tissue was debrided. The total graft length measured 100 mm. I planned on the 9 x 20 mm femoral bone plug and a 10 x 30 mm tibial bone plug. This was then inserted utilizing the previously placed sutures. The graft was fully seated in the femoral tunnel. A guidepin was then placed with the knee hyperflexed and a 9 x 23 mm femoral interference screw inserted. Good purchase was obtained. The knee was then put in full extension. He was taken through several flexion and extension cycles. There was no roof impingement. With the knee in extension, the tibial interference screw was inserted with the appropriate guide pin. Good purchase was obtained. Final arthroscopic view showed adequate graft positioning and tension. The sutures were then removed. The subcutaneous tissues reapproximated interrupted 2-0 Vicryl sutures. The tibial incision was closed with running 3-0 Prolene suture. Steri-Strips were applied. A sterile dressing was applied in addition to a knee immobilizer. The patient was then awoken from general anesthesia and transferred to recovery room in good condition. Blood loss was estimated at 10 mL. No complications were incurred. Sponge and needle counts were correct at the end of the case.
[2018-03-28] MEDS ORDERED: MEPERIDINE 50 MG/ML SYRINGE IVP ONE ×2 (10:39→10:45)
[2018-03-28] MEDS ORDERED: HYDROcodone/APAP 5-325MG 1 EACH TAB PO ONE (11:14)
[2018-03-28 11:22] VITALS: RESP 16
[2018-03-28 11:59] VITALS: BP 117/74; PULSE 91
--- NOTE | 2018-03-28 13:28 | XR ---
EXAMINATION TYPE: XR knee complete RT DATE OF EXAM: 03/28/2018 CLINICAL HISTORY: pain TECHNIQUE: 2 views of the right knee are obtained. COMPARISON: None. FINDINGS: Postoperative changes of ACL reconstruction. Alignment is anatomic. Postsurgical soft tissu e changes noted. IMPRESSION: Appropriate postoperative alignment.
== END 2018-03-28 12:20 | disposition home or self-care (01) ==
LOC: OR 06:44
PROVIDERS: ATTEND Orthopaedic Surgery
DX: S83.511A Sprain of anterior cruciate ligament of right knee, initial encounter (principal); S83.281A Other tear of lateral meniscus, current injury, right knee, initial encounter; X58.XXXA Exposure to other specified factors, initial encounter; Y93.52 Activity, horseback riding; J45.909 Unspecified asthma, uncomplicated; I10 Essential (primary) hypertension; G43.909 Migraine, unspecified, not intractable, without status migrainosus; M35.00 Sjogren syndrome, unspecified; G35 Multiple sclerosis; Z79.3 Long term (current) use of hormonal contraceptives; Z79.891 Long term (current) use of opiate analgesic; Z79.899 Other long term (current) drug therapy; Z88.5 Allergy status to narcotic agent; Z91.041 Radiographic dye allergy status
CPT/HCPCS: 81025; 73562; 29881; 29888; C1713; C1762; J2250; J1100; J2175; J2270; J2405; J0690 ×2; J0171; J2001; J3010; J1885; J0330; J2704

== ENCOUNTER 2018-05-08 16:47 | Emergency (ER) | payer MEDICAID ==
[2018-05-08 16:56] VITALS: BP 145/86; PULSE 98; RESP 18; TEMP 98.3
[2018-05-08] MEDS ORDERED: METOCLOPRAMIDE 5 MG/ML 2 ML VIAL IVP STA (17:07)
[2018-05-08] MEDS ORDERED: DEXAMETHASONE SOD PHOSPHATE 10 MG/ML 1 ML VIAL IV STA (17:07)
[2018-05-08] MEDS ORDERED: diphenhydrAMINE 50 MG/ML 1 ML VIAL IVP STA (17:07)
[2018-05-08] MEDS ORDERED: KETOROLAC 30 MG/ML 1 ML VIAL IVP STA (17:07)
--- NOTE | 2018-05-08 17:36 | ED ---
General Adult HPI - General Chief complaint: Headache Stated complaint: Headache Time Seen by Provider: 05/08/18 16:57 Source: patient Mode of arrival: ambulatory Limitations: no limitations - History of Present Illness Initial comments: 38 -year-old female presents to the emergency department for a chief complaint of migraine 3 days. Patient has a history of migraines and this is consistent to her past migraines. Patient denies any head injury. Patient denies any loss of consciousness. Patient is mildly sensitive to light. Patient has no other complaints at this time including shortness of breath, chest pain, abdominal pain, nausea or vomiting, headache, or visual changes. - Related Data Home Medications Medication Instructions Recorded Confirmed Butalb/Acetaminophen/Caffeine 1 - 2 tab PO Q6H PRN 04/26/16 03/28/18 [Fioricet 50-325-40 mg Tablet] Lacosamide [Vimpat] 100 mg PO BID 04/26/16 03/28/18 SUMAtriptan SUCCINATE [Imitrex] 4 mg SQ DIRECTED PRN 07/09/16 03/28/18 Ergocalciferol (Vitamin D2) 50,000 unit PO TU 03/13/18 03/25/18 [Vitamin D2] Medroxyprogesterone Acetate 150 mg IM Q90D 03/13/18 03/25/18 [Depo-Provera] Propranolol HCl [Inderal LA] 120 mg PO HS 03/13/18 03/28/18 Venlafaxine HCl [Effexor XR] 150 mg PO HS 03/13/18 03/25/18 Previous Rx's Medication Instructions Recorded Aspirin 325 mg PO DAILY #30 tab 03/28/18 HYDROcodone/APAP 7.5-325MG [[place] 1 each PO Q6HR PRN #30 tab 03/28/18 7.5] Allergies Allergy/AdvReac Type Severity Reaction Status Date / Time Iodinated Contrast- Oral and Allergy Nausea & Verified 05/08/18 16:56 IV Dye Vomiting tramadol Allergy Rapid Verified 05/08/18 16:56 Heart Rate Review of Systems ROS Statement: Those systems with pertinent positive or pertinent negative responses have been documented in the HPI. ROS Other: All systems not noted in ROS Statement are negative. Past Medical History Past Medical History: Asthma, Musculoskeletal Disorder Additional Past Medical History / Comment(s): Sjogrens, migraines,MS History of Any Multi-Drug Resistant Organisms: None Reported Past Surgical History: Cholecystectomy, Orthopedic Surgery Past Psychological History: No Psychological Hx Reported Smoking Status: Never smoker Past Alcohol Use History: None Reported Past Drug Use History: None Reported General Exam Limitations: no limitations General appearance: alert, in no apparent distress (pleasantly sitting in bed ) Head exam: Present: atraumatic, normocephalic, normal inspection Eye exam: Present: normal appearance, PERRL, EOMI. Absent: scleral icterus, conjunctival injection, periorbital swelling Pupils: Present: normal accommodation ENT exam: Present: normal exam, normal oropharynx (uvula midline), mucous membranes moist, TM's normal bilaterally Neck exam: Present: normal inspection, full ROM. Absent: tenderness, meningismus, lymphadenopathy Respiratory exam: Present: normal lung sounds bilaterally. Absent: respiratory distress, wheezes, rales, rhonchi, stridor Cardiovascular Exam: Present: regular rate, normal rhythm, normal heart sounds. Absent: systolic murmur, diastolic murmur, rubs, gallop, clicks Neurological exam: Present: alert, oriented X3, CN II-XII intact, reflexes normal, other (strength 5/5 in upper and lower extremities bilaterally.). Absent: motor sensory deficit Course Vital Signs 05/08/18 16:54 Temperature 98.3 F Pulse Rate 98 Respiratory 18 Rate Blood Pressure 145/86 O2 Sat by Pulse 99 Oximetry Medical Decision Making - Medical Decision Making 38-year-old female presents to the emergency department for a chief complaint of migraine x 4 days. Patient has a history of migraines and this is similar to her past episodes. Patient denies this being the worst headache of her life. No acute injuries. On exam no focal neuro deficits. Patient was treated with IV meds and hydration and she felt better. Patient will be discharged home. She is to follow-up with primary care in 1-2 days or return if she has any worsening symptoms. Disposition Clinical Impression: Headache Disposition: HOME SELF-CARE Condition: Good Instructions: Migraine Headache (ED) Additional Instructions: Follow-up with primary care provider in one to 2 days. Return to the emergency department if you have any worsening symptoms including worsening headache. Is patient prescribed a controlled substance at d/c from ED?: No Referrals: Ras Wylie MD [Primary Care Provider] - 1-2 days Time of Disposition: 18:25
== END 2018-05-08 18:36 | disposition home or self-care (01) ==
LOC: EC 16:47
DX: R51 Headache (principal); H53.149 Visual discomfort, unspecified; Z79.3 Long term (current) use of hormonal contraceptives; Z79.899 Other long term (current) drug therapy; Z88.5 Allergy status to narcotic agent; Z91.041 Radiographic dye allergy status
CPT/HCPCS: 99283; 96374; 96375 ×3; J1200; J1100; J2765; J1885

== ENCOUNTER 2018-05-18 20:51 | Emergency (ER) | payer MEDICAID ==
[2018-05-18] MEDS ORDERED: SODIUM CHLORIDE 0.9% 1,000 ML IV STA (21:17)
[2018-05-18] MEDS ORDERED: diphenhydrAMINE 50 MG/ML 1 ML VIAL IVP STA (21:17)
[2018-05-18] MEDS ORDERED: KETOROLAC 30 MG/ML 1 ML VIAL IVP STA (21:17)
[2018-05-18] MEDS ORDERED: METOCLOPRAMIDE 5 MG/ML 2 ML VIAL IVP STA (21:17)
--- NOTE | 2018-05-18 21:31 | ED ---
Headache HPI - General Chief Complaint: Headache Stated Complaint: Mirgraine Time Seen by Provider: 05/18/18 21:02 Source: RN notes reviewed Mode of arrival: ambulatory Limitations: no limitations - History of Present Illness Initial Comments: This is a 38-year-old female who presents to the emergency department with chief complaint of migraine headache. Patient does have a history of migraine headaches and states that her current headache feels like previous episodes. She states that she has been having migraines approximately 2 times per month for which she has had to come to the emergency department for IV medications. Patient does state that she has an MRI of the brain scheduled for tomorrow. She states that she developed a right-sided migraine headache yesterday and has been having nausea and vomiting. Denies any dizziness, abdominal pain, chest pain or shortness of breath. Denies any recent falls, injuries or trauma. - Related Data Home Medications Medication Instructions Recorded Confirmed Butalb/Acetaminophen/Caffeine 1 - 2 tab PO Q6H PRN 04/26/16 03/28/18 [Fioricet 50-325-40 mg Tablet] Lacosamide [Vimpat] 100 mg PO BID 04/26/16 03/28/18 SUMAtriptan SUCCINATE [Imitrex] 4 mg SQ DIRECTED PRN 07/09/16 03/28/18 Ergocalciferol (Vitamin D2) 50,000 unit PO TU 03/13/18 03/25/18 [Vitamin D2] Medroxyprogesterone Acetate 150 mg IM Q90D 03/13/18 03/25/18 [Depo-Provera] Propranolol HCl [Inderal LA] 120 mg PO HS 03/13/18 03/28/18 Venlafaxine HCl [Effexor XR] 150 mg PO HS 03/13/18 03/25/18 Previous Rx's Medication Instructions Recorded Aspirin 325 mg PO DAILY #30 tab 03/28/18 HYDROcodone/APAP 7.5-325MG [[place] 1 each PO Q6HR PRN #30 tab 03/28/18 7.5] Allergies Allergy/AdvReac Type Severity Reaction Status Date / Time Iodinated Contrast- Oral and Allergy Nausea & Verified 05/18/18 21:01 IV Dye Vomiting tramadol Allergy Rapid Verified 05/18/18 21:01 Heart Rate Review of Systems ROS Statement: Those systems with pertinent positive or pertinent negative responses have been documented in the HPI. ROS Other: All systems not noted in ROS Statement are negative. Past Medical History Past Medical History: Asthma, Musculoskeletal Disorder Additional Past Medical History / Comment(s): Sjogrens, migraines,MS History of Any Multi-Drug Resistant Organisms: None Reported Past Surgical History: Cholecystectomy, Orthopedic Surgery Additional Past Surgical History / Comment(s): ACL Past Psychological History: No Psychological Hx Reported Smoking Status: Never smoker Past Alcohol Use History: None Reported Past Drug Use History: None Reported General Exam - General Exam Comments Initial Comments: General: Awake and alert, well-developed; in no apparent distress. HEENT: Head atraumatic, normocephalic. Pupils are equal, round and reactive to light. Extraocular movements intact. Oropharynx moist without erythema or exudate. Neck: Supple. Normal ROM. Cardiovascular: Regular rate and rhythm. No murmurs, rubs or gallops. Chest symmetrical. Respiratory: Lungs clear to auscultation bilaterally. No wheezes, rales or rhonchi. Normal respiratory effort with no use of accessory muscles. Musculoskeletal: Normal ROM, no tenderness bilateral upper and lower extremities. Ambulating normally. Skin: Devine, warm and dry without rashes or lesions. Neurological: Alert and oriented x3. CN II-XII grossly intact. Speech is fluent and answers are appropriate. No focal neuro deficits. Psychiatric: Normal mood and affect. No overt signs of depression or anxiety noted. Limitations: no limitations Course Vital Signs 05/18/18 20:58 Temperature 98.2 F Pulse Rate 102 H Respiratory 18 Rate Blood Pressure 133/85 O2 Sat by Pulse 98 Oximetry Medical Decision Making - Medical Decision Making This is a 38-year-old female with history of migraine headaches who presents to the emergency department with chief complaint of migraine headache since yesterday. She did admits to associated nausea and vomiting. Patient states that her current migraine feels like previous episodes. Denies any falls, injuries or trauma. She does state she has an MRI scheduled for tomorrow she has been having increased frequency of her migraines. Patient was given headache cocktail and IV fluids while in the emergency department. She states that she is feeling much better and would like to be discharged home at this time. Vital signs are stable and patient is in no acute distress. She will be discharged home. All questions answered. Disposition Clinical Impression: Migraine Disposition: HOME SELF-CARE Condition: Good Instructions: Migraine Headache (ED) Additional Instructions: Please follow up with primary care provider within 1-2 days. Return to emergency department if symptoms should worsen or any concerns arise. Is patient prescribed a controlled substance at d/c from ED?: No Referrals: Arely Wylie DO [REFERRING] - 1-2 days Time of Disposition: 22:09
[2018-05-18 22:28] VITALS: BP 136/92; PULSE 86; RESP 20; TEMP 98.3
== END 2018-05-18 22:28 | disposition home or self-care (01) ==
LOC: EC 20:51
DX: G43.909 Migraine, unspecified, not intractable, without status migrainosus (principal); Z79.3 Long term (current) use of hormonal contraceptives; Z79.899 Other long term (current) drug therapy; Z88.5 Allergy status to narcotic agent; Z91.041 Radiographic dye allergy status
CPT/HCPCS: 99283; 96374; 96375 ×2; 96361; J1200; J2765; J1885

== ENCOUNTER → 2018-05-19 | Outpatient (CLI) | payer MEDICAID ==
[2018-05-19 19:24] LABS: Blood Urea Nitrogen 10 mg/dL (7-17)
--- NOTE | 2018-05-19 22:57 | MR ---
EXAMINATION TYPE: MR brain wo/w con DATE OF EXAM: 05/19/2018 COMPARISON: MRI brain May 01, 2017 HISTORY: White matter changes, Left side weakness, migraines TECHNIQUE: Multiplanar, multisequence images of the brain and brainstem is performed without and with IV contras t, utilizing 10 mL intravenous Gadavist gadolinium contrast is administered intravenously. Demyelina ting disease protocol with additional Sagittal Flair sequence performed. FINDINGS: T2 Lesions Present : Yes Approximate Number of Lesions: Approximately 10-15 Locations Identified : Scattered deep and periventricular Size of Reference Lesion(s): 1. 0.8 cm x 0.3 cm x 0.5 cm on axial image 18 and sagittal image 13 left frontal horn periVentricula r lesion stable 2 0.5 cm x 0.2 cm x 0.3 cm on axial image 20 and sagittal image 21 right frontal lesion stable Enhancing Lesion(s) Present: No T1 Hypointense Lesion(s) Present: Yes Change from Prior: Stable Diffusion weighted images demonstrate no evidence of a recent infarct or other diffusion abnormality. There is no worrisome extra-axial fluid collection. The ventricular system and cisternal spaces ar e normal in size and appearance. The brain volume is age appropriate. Midline structures demonstrate normal morphology. The craniocervical junction appears within normal limits. Post contrast images demonstrate no abnormal enhancement. The dural venous sinuses appear pa tent. The visualized sinuses are clear and the globes are intact. IMPRESSION: Stable mild nonspecific white matter changes redemonstrated may be product of multiple sc lerosis, other etiologies are not excluded. No new or enhancing are seen. No significant change from prior.
== END | disposition home or self-care (01) ==
LOC: RADMRIMAIN 18:49
PROVIDERS: ATTEND Nurse Practitioner Acute Care
DX: R90.89 Other abnormal findings on diagnostic imaging of central nervous system (principal)
CPT/HCPCS: 82565; 84520; 70553; 36415; A9581

== ENCOUNTER 2018-06-19 03:56 | Emergency (ER) | payer MEDICAID | END 2018-06-19 05:00 | disposition home or self-care (01) | LOC: EC 03:56 | DX: G43.909 Migraine, unspecified, not intractable, without status migrainosus (principal); Z88.5 Allergy status to narcotic agent; Z91.041 Radiographic dye allergy status | CPT/HCPCS: 96361; 96374; 96375; 99283 ==

== ENCOUNTER 2018-07-31 18:12 | Emergency (ER) | payer MEDICAID ==
[2018-07-31] MEDS ORDERED: KETOROLAC 30 MG/ML 1 ML VIAL IVP STA (19:26)
[2018-07-31] MEDS ORDERED: METOCLOPRAMIDE 5 MG/ML 2 ML VIAL IVP STA (19:26)
[2018-07-31] MEDS ORDERED: SODIUM CHLORIDE 0.9% 1,000 ML IV ONE (19:26)
[2018-07-31] MEDS ORDERED: diphenhydrAMINE 50 MG/ML 1 ML VIAL IVP STA (19:26)
[2018-07-31] MEDS ORDERED: ORPHENADRINE 30 MG/ML 2 ML VIAL IVP STA (19:30)
--- NOTE | 2018-07-31 19:39 | ED ---
Headache HPI - General Chief Complaint: Headache Stated Complaint: VOMITING, MIGRAINE Time Seen by Provider: 07/31/18 19:17 Mode of arrival: ambulatory Limitations: no limitations - History of Present Illness Initial Comments: 38 year-old female patient with past medical history significant for migraines, multiple sclerosis, and acid reflux presents to the emergency department today for evaluation of migraine. Patient states the pain is mostly located behind her right eye. Patient states she is having some blurred vision to the right eye. Patient states that the headache has been present since Saturday. States she started having vomiting on Saturday. States that she did have a Toradol injection from her primary care physician yesterday and has been taking zofran without much improvement in symptoms. Patient denies any abnormal numbness or tingling to her extremities. Denies any weakness. Has not had any fevers or chills with this. Patient is reporting abdominal discomfort, she believes it may be related to soreness from vomiting. Patient again has history of migraine headaches and states that her symptoms are typical of her usual migraine pattern. - Related Data Home Medications Medication Instructions Recorded Confirmed Butalb/Acetaminophen/Caffeine 1 - 2 tab PO Q6H PRN 04/26/16 07/31/18 [Fioricet 50-325-40 mg Tablet] Lacosamide [Vimpat] 100 mg PO BID 04/26/16 07/31/18 SUMAtriptan SUCCINATE [Imitrex] 4 mg SQ DIRECTED PRN 07/09/16 07/31/18 Ergocalciferol (Vitamin D2) 50,000 unit PO TU 03/13/18 07/31/18 [Vitamin D2] Medroxyprogesterone Acetate 150 mg IM Q90D 03/13/18 07/31/18 [Depo-Provera] Propranolol HCl [Inderal LA] 120 mg PO HS 03/13/18 07/31/18 Venlafaxine HCl [Effexor XR] 150 mg PO HS 03/13/18 07/31/18 Acetaminophen [Tylenol] 650 mg PO Q4H PRN 07/31/18 07/31/18 [id number] 2 tab PO Q4HR PRN 07/31/18 07/31/18 [Excedrin] Folic Acid 0.4 mg PO DAILY 07/31/18 07/31/18 Ibuprofen [Motrin Ib] 800 mg PO Q8H PRN 07/31/18 07/31/18 Previous Rx's Medication Instructions Recorded Aspirin 325 mg PO DAILY #30 tab 03/28/18 Allergies Allergy/AdvReac Type Severity Reaction Status Date / Time Iodinated Contrast- Oral and Allergy Nausea & Verified 07/31/18 20:29 IV Dye Vomiting tramadol Allergy Rapid Verified 07/31/18 20:29 Heart Rate Review of Systems ROS Statement: Those systems with pertinent positive or pertinent negative responses have been documented in the HPI. ROS Other: All systems not noted in ROS Statement are negative. Past Medical History Past Medical History: Asthma, Musculoskeletal Disorder Additional Past Medical History / Comment(s): Sjogrens, migraines,MS History of Any Multi-Drug Resistant Organisms: None Reported Past Surgical History: Cholecystectomy, Orthopedic Surgery Additional Past Surgical History / Comment(s): ACL Past Psychological History: No Psychological Hx Reported Smoking Status: Never smoker Past Alcohol Use History: None Reported Past Drug Use History: None Reported General Exam Limitations: no limitations General appearance: alert, in no apparent distress, other (This is a well- developed, well-nourished adult female patient in no acute distress. Vital signs upon presentation are temperature 98.8F, pulse 96, respirations 16, blood pressure 122/81, pulse ox 97% on room air.) Eye exam: Present: normal appearance, PERRL, EOMI. Absent: scleral icterus, conjunctival injection, nystagmus, periorbital swelling ENT exam: Present: normal exam, normal oropharynx, mucous membranes moist Respiratory exam: Present: normal lung sounds bilaterally. Absent: respiratory distress, wheezes, rales, rhonchi, stridor Cardiovascular Exam: Present: regular rate, normal rhythm, normal heart sounds. Absent: systolic murmur, diastolic murmur, rubs, gallop, clicks GI/Abdominal exam: Present: soft, tenderness (Mild generalized tenderness), normal bowel sounds. Absent: distended, guarding, rebound, rigid Neurological exam: Present: alert, oriented X3, CN II-XII intact, other ( Strength in all 4 extremities is 5/5.) Psychiatric exam: Present: normal affect, normal mood Skin exam: Present: warm, dry, intact, normal color. Absent: rash Course Vital Signs 07/31/18 18:56 Temperature 98.8 F Pulse Rate 96 Respiratory 16 Rate Blood Pressure 122/81 O2 Sat by Pulse 97 Oximetry Medical Decision Making - Medical Decision Making 38 year-old female patient presented to the emergency department today for evaluation of migraine headache. Patient reported that symptoms are consistent with her usual migraine pattern. Physical examination is unremarkable. Patient is neurologically intact. Patient is given medication here in the emergency department, upon reevaluation patient is feeling much better. Patient does feel comfortable being discharged home at this time to follow-up with her primary care physician and her neurologist. Return parameters were discussed in detail. She verbalizes understanding and agrees with this plan. Disposition Clinical Impression: Migraine headache Disposition: HOME SELF-CARE Condition: Good Instructions: Migraine Headache (ED) Additional Instructions: Continue home medications as directed. Increase fluids. Follow-up with her primary care physician/neurologist for recheck as is possible. Return here immediately for any new, worsening, or concerning symptoms. Is patient prescribed a controlled substance at d/c from ED?: No Referrals: Ras Wylie MD [Primary Care Provider] - 1-2 days Time of Disposition: 20:35
[2018-07-31 21:14] VITALS: BP 117/66; PULSE 63; RESP 18; TEMP 98.7
== END 2018-07-31 21:14 | disposition home or self-care (01) ==
LOC: EC 18:12
DX: G43.909 Migraine, unspecified, not intractable, without status migrainosus (principal); Z79.899 Other long term (current) drug therapy; Z79.890 Hormone replacement therapy; Z91.041 Radiographic dye allergy status; Z88.6 Allergy status to analgesic agent
CPT/HCPCS: 99283; 96374; 96375 ×3; 96361; J1200; J2360; J2765; J1885

== ENCOUNTER 2018-09-12 01:37 | Emergency (ER) | payer MEDICAID ==
[2018-09-12 01:44] VITALS: RESP 18
[2018-09-12] MEDS ORDERED: ORPHENADRINE 30 MG/ML 2 ML VIAL IVP STA (02:00)
[2018-09-12] MEDS ORDERED: diphenhydrAMINE 50 MG/ML 1 ML VIAL IVP STA (02:00)
[2018-09-12] MEDS ORDERED: SODIUM CHLORIDE 0.9% 1,000 ML IV ONE (02:00)
[2018-09-12] MEDS ORDERED: MORPHINE SULFATE 2 MG/ML SYRINGE IVP STA (02:00)
[2018-09-12] MEDS ORDERED: KETOROLAC 30 MG/ML 1 ML VIAL IVP STA (02:00)
[2018-09-12] MEDS ORDERED: METOCLOPRAMIDE 5 MG/ML 2 ML VIAL IVP STA (02:00)
--- NOTE | 2018-09-12 02:28 | ED ---
Headache HPI - General Mode of arrival: ambulatory Limitations: no limitations <Em Conklin - Last Filed: 09/12/18 04:08> <Brianna Arana - Last Filed: 09/12/18 05:11> - General Chief Complaint: Headache Stated Complaint: migraine Time Seen by Provider: 09/12/18 01:45 - History of Present Illness Initial Comments: 38 year old female patient with past medical history significant for multiple sclerosis and migraine headache presents to the emergency department today for complaints of neck pain. Patient states that she had injections in her neck Saturday. States that her neurologist is trialing a procedure to numb the nerves in her neck to see if she will benefit from nerve ablation procedure for treatment of migraine headaches. Patient states she has had the procedure once in the past and had similar type reaction where she has severe pain to her neck that radiates into her head and causes a migraine headache. Patient states she is sensitive to light. She states she has been nauseated. States that she did take Toradol approximately 3 hours ago and it didn't seem to help. She denies any numbness or tingling to her extremities. Denies any blurred or double vision. Denies any weakness. Patient denies any recent rash, fever, chills, shortness breath, chest pain, abdominal pain, diarrhea, constipation, back pain , hematuria, dysuria, urinary urgency, urinary frequency, or any other complaints. (Em Conklin) - Related Data Home Medications Medication Instructions Recorded Confirmed Butalb/Acetaminophen/Caffeine 1 - 2 tab PO Q6H PRN 04/26/16 07/31/18 [Fioricet 50-325-40 mg Tablet] Lacosamide [Vimpat] 100 mg PO BID 04/26/16 07/31/18 SUMAtriptan SUCCINATE [Imitrex] 4 mg SQ DIRECTED PRN 07/09/16 07/31/18 Ergocalciferol (Vitamin D2) 50,000 unit PO TU 03/13/18 07/31/18 [Vitamin D2] Medroxyprogesterone Acetate 150 mg IM Q90D 03/13/18 07/31/18 [Depo-Provera] Propranolol HCl [Inderal LA] 120 mg PO HS 03/13/18 07/31/18 Venlafaxine HCl [Effexor XR] 150 mg PO HS 03/13/18 07/31/18 Acetaminophen [Tylenol] 650 mg PO Q4H PRN 07/31/18 07/31/18 [id number] 2 tab PO Q4HR PRN 07/31/18 07/31/18 [Excedrin] Folic Acid 0.4 mg PO DAILY 07/31/18 07/31/18 Ibuprofen [Motrin Ib] 800 mg PO Q8H PRN 07/31/18 07/31/18 Previous Rx's Medication Instructions Recorded Aspirin 325 mg PO DAILY #30 tab 03/28/18 Allergies Allergy/AdvReac Type Severity Reaction Status Date / Time Iodinated Contrast- Oral and Allergy Nausea & Verified 09/12/18 01:44 IV Dye Vomiting tramadol Allergy Rapid Verified 09/12/18 01:44 Heart Rate Review of Systems ROS Other: All systems not noted in ROS Statement are negative. <Em Conklin - Last Filed: 09/12/18 04:08> ROS Other: All systems not noted in ROS Statement are negative. <Brianna Arana - Last Filed: 09/12/18 05:11> ROS Statement: Those systems with pertinent positive or pertinent negative responses have been documented in the HPI. Past Medical History Past Medical History: Asthma, Musculoskeletal Disorder Additional Past Medical History / Comment(s): Sjogrens, migraines,MS History of Any Multi-Drug Resistant Organisms: None Reported Past Surgical History: Cholecystectomy, Orthopedic Surgery Additional Past Surgical History / Comment(s): ACL Past Psychological History: No Psychological Hx Reported Smoking Status: Never smoker Past Alcohol Use History: None Reported Past Drug Use History: None Reported <Em Conklin - Last Filed: 09/12/18 04:08> General Exam Limitations: no limitations General appearance: alert, in no apparent distress, other (This is a well- developed, well-nourished adult female patient in no acute distress. Vital signs upon presentation are temperature 98.1F, pulse 92, respirations 18, blood pressure 135/85, pulse ox 100% on room air.) Eye exam: Present: normal appearance, PERRL, EOMI. Absent: scleral icterus, conjunctival injection, nystagmus, periorbital swelling Neck exam: Present: normal inspection, tenderness (Bilateral suboccipital tenderness). Absent: meningismus, lymphadenopathy Respiratory exam: Present: normal lung sounds bilaterally. Absent: respiratory distress, wheezes, rales, rhonchi, stridor Cardiovascular Exam: Present: regular rate, normal rhythm, normal heart sounds. Absent: systolic murmur, diastolic murmur, rubs, gallop, clicks Neurological exam: Present: alert, oriented X3, CN II-XII intact Expanded Speech: Present: fluid speech Cranial nerves: EOM's Intact: Normal, Nystagmus: Normal Motor strength exam: RUE: 5, LUE: 5, RLE: 5, LLE: 5 Psychiatric exam: Present: normal affect, normal mood Skin exam: Present: warm, dry, intact, normal color. Absent: rash <Em Conklin - Last Filed: 09/12/18 04:08> Vital Signs 09/12/18 09/12/18 01:42 03:31 Temperature 98.1 F 98 F Pulse Rate 92 75 Respiratory 18 18 Rate Blood Pressure 135/85 130/81 O2 Sat by Pulse 100 98 Oximetry Medical Decision Making <Em Conklin - Last Filed: 09/12/18 04:08> <Brianna Arana - Last Filed: 09/12/18 05:11> - Medical Decision Making 38-year-old female patient presented to the emergency department today for complaints of headache and neck pain after procedure on Saturday. Physical examination is relatively unremarkable. There is no erythema or evidence of infection to injection sites on the neck. Patient is neurologically intact with no focal deficits. Patient does have extensive history of migraine headache. Patient was given IV fluids and pain medication here in the department. Upon reevaluation patient is feeling much better and would like to be discharged home. She is instructed to follow-up with her primary care physician as well as her neurologist for further evaluation. Return parameters were discussed in detail. She verbalizes understanding and agreed with this plan. (Em Conklin) I was available for consultation in the emergency department. The history and physical exam were done by the midlevel provider. I was consulted for this patient's care. I reviewed the case with the midlevel provider and based on their presentation of the patient, I agree with the assessment, medical decision making and plan of care as documented. (Brianna Arana) Disposition Is patient prescribed a controlled substance at d/c from ED?: No Time of Disposition: 03:23 <Em Conklin - Last Filed: 09/12/18 04:08> <Brianna Arana - Last Filed: 09/12/18 05:11> Clinical Impression: Migraine headache, Neck pain Disposition: HOME SELF-CARE Condition: Good Instructions: Migraine Headache (ED), Neck Pain (ED) Additional Instructions: Continue all medications as directed. Follow-up with her primary care physician and your neurologist for recheck as soon as possible. Return here immediately for any new, worsening, or concerning symptoms. Referrals: Ras Wylie MD [Primary Care Provider] - 1-2 days Candido Ho MD [STAFF PHYSICIAN] - 1-2 days
[2018-09-12 03:33] VITALS: BP 130/81; PULSE 75; TEMP 98
== END 2018-09-12 03:32 | disposition home or self-care (01) ==
LOC: EC 01:37
DX: G43.909 Migraine, unspecified, not intractable, without status migrainosus (principal); M54.2 Cervicalgia; Z79.899 Other long term (current) drug therapy; Z88.5 Allergy status to narcotic agent; Z91.041 Radiographic dye allergy status
CPT/HCPCS: 99283; 96374; 96375 ×4; 96361; J1200; J2360; J2765; J1885; J2270

== ENCOUNTER 2018-10-10 21:31 | Emergency (ER) | payer MEDICAID ==
[2018-10-10] MEDS ORDERED: SODIUM CHLORIDE 0.9% 1,000 ML IV STA (23:12)
[2018-10-10] MEDS ORDERED: METOCLOPRAMIDE 5 MG/ML 2 ML VIAL IVP STA (23:12)
[2018-10-10] MEDS ORDERED: KETOROLAC 30 MG/ML 1 ML VIAL IVP STA (23:12)
[2018-10-10] MEDS ORDERED: diphenhydrAMINE 50 MG CAP PO STA (23:12)
[2018-10-10] MEDS ORDERED: ORPHENADRINE 30 MG/ML 2 ML VIAL IM STA (23:22)
--- NOTE | 2018-10-11 00:11 | ED ---
General Adult HPI - General Chief complaint: Headache Stated complaint: Migraine & vomiting Time Seen by Provider: 10/10/18 22:53 Source: patient, RN notes reviewed Mode of arrival: ambulatory Limitations: no limitations - History of Present Illness Initial comments: 38-year-old female presents to the emergency department for a chief complaint of headache 3 days. Patient states this pain is consistent with past migraines. She states she is sensitive to both light and sound. Patient states she has also been nauseous which is consistent with previous migraines. She states the pain medications here usually help her migraines. Patient denies any lightheadedness or loss of consciousness. She denies this being the worst headache of her life. Patient denies any neck pain or stiffness.Patient has no other complaints at this time including shortness of breath, chest pain, abdominal pain, or visual changes. - Related Data Home Medications Medication Instructions Recorded Confirmed Butalb/Acetaminophen/Caffeine 1 - 2 tab PO Q6H PRN 04/26/16 10/10/18 [Fioricet 50-325-40 mg Tablet] Lacosamide [Vimpat] 100 mg PO BID 04/26/16 10/10/18 SUMAtriptan SUCCINATE [Imitrex] 4 mg SQ DIRECTED PRN 07/09/16 10/10/18 Ergocalciferol (Vitamin D2) 50,000 unit PO TU 03/13/18 10/10/18 [Vitamin D2] Medroxyprogesterone Acetate 150 mg IM Q90D 03/13/18 10/10/18 [Depo-Provera] Propranolol HCl [Inderal LA] 120 mg PO HS 03/13/18 10/10/18 Venlafaxine HCl [Effexor XR] 150 mg PO HS 03/13/18 10/10/18 Acetaminophen [Tylenol] 650 mg PO Q4H PRN 07/31/18 10/10/18 [id number]-[id number] [id number] 2 tab PO Q4HR PRN 07/31/18 10/10/18 [Excedrin] Folic Acid 0.4 mg PO DAILY 07/31/18 10/10/18 Ibuprofen [Motrin Ib] 800 mg PO Q8H PRN 07/31/18 10/10/18 Ondansetron [Zofran ODT] 8 mg PO Q12HR PRN 10/10/18 10/10/18 Previous Rx's Medication Instructions Recorded Aspirin 325 mg PO DAILY #30 tab 03/28/18 Allergies Allergy/AdvReac Type Severity Reaction Status Date / Time Iodinated Contrast- Oral and Allergy Nausea & Verified 10/10/18 22:59 IV Dye Vomiting tramadol Allergy Rapid Verified 10/10/18 22:59 Heart Rate Review of Systems ROS Statement: Those systems with pertinent positive or pertinent negative responses have been documented in the HPI. ROS Other: All systems not noted in ROS Statement are negative. Past Medical History Past Medical History: Asthma, Musculoskeletal Disorder Additional Past Medical History / Comment(s): Sjogrens, migraines,MS History of Any Multi-Drug Resistant Organisms: None Reported Past Surgical History: Cholecystectomy, Orthopedic Surgery Additional Past Surgical History / Comment(s): ACL Past Psychological History: No Psychological Hx Reported Smoking Status: Never smoker Past Alcohol Use History: None Reported Past Drug Use History: None Reported General Exam Limitations: no limitations General appearance: alert, in no apparent distress Head exam: Present: atraumatic, normocephalic, normal inspection Eye exam: Present: normal appearance, PERRL, EOMI. Absent: scleral icterus, conjunctival injection, periorbital swelling ENT exam: Present: normal exam, normal oropharynx, mucous membranes moist, TM's normal bilaterally, normal external ear exam Neck exam: Present: normal inspection, full ROM. Absent: tenderness, meningismus, lymphadenopathy Respiratory exam: Present: normal lung sounds bilaterally. Absent: respiratory distress, wheezes, rales, rhonchi, stridor Cardiovascular Exam: Present: regular rate, normal rhythm, normal heart sounds. Absent: systolic murmur, diastolic murmur, rubs, gallop, clicks Neurological exam: Present: alert, oriented X3, CN II-XII intact, normal gait, other (GCS 15) Psychiatric exam: Present: normal affect, normal mood Course Vital Signs 10/10/18 21:41 Temperature 98.0 F Pulse Rate 101 H Respiratory 19 Rate Blood Pressure 125/84 O2 Sat by Pulse 98 Oximetry Medical Decision Making - Medical Decision Making 88-year-old female with a past history of migraines presents to the emergency determine for chief complaint of headache. Patient states this pain is consistent with previous migraines. She admits to photosensitivity and nausea. She denies this being the worst headache of her life. Exam is unremarkable, no focal neuro deficits. GCS 15. Patient was given IV fluids as well as Reglan , Benadryl, and Toradol. On reevaluation patient is feeling much better at this time. She states she is ready to go home. Patient voices understanding that she is to return here if she is any worsening symptoms and to follow up with primary care in 1-2 days. Disposition Clinical Impression: Headache, History of migraine Disposition: HOME SELF-CARE Condition: Good Instructions: Acute Headache (ED) Additional Instructions: Please take pain medications at home. Please follow-up with primary care in 1- 2 days. Please return to the emergency department if you've any worsening symptoms. Is patient prescribed a controlled substance at d/c from ED?: No Referrals: Ras Wylie MD [Primary Care Provider] - 1-2 days Time of Disposition: 00:10
[2018-10-11 00:33] VITALS: BP 130/72; PULSE 88; RESP 16; TEMP 97.8
== END 2018-10-11 00:33 | disposition home or self-care (01) ==
LOC: EC 21:31
DX: G43.909 Migraine, unspecified, not intractable, without status migrainosus (principal); Z79.899 Other long term (current) drug therapy; Z79.82 Long term (current) use of aspirin; Z91.041 Radiographic dye allergy status; Z88.5 Allergy status to narcotic agent
CPT/HCPCS: 99283; 96374; 96375; 96361; 96372; J2360; J2765; J1885

== ENCOUNTER 2018-10-11 12:10 | Emergency (ER) | payer MEDICAID ==
[2018-10-11 12:27] VITALS: RESP 18; TEMP 98.2
[2018-10-11] MEDS ORDERED: SODIUM CHLORIDE 0.9% 500 ML 500 ML IV STA (12:36)
[2018-10-11] MEDS ORDERED: KETOROLAC 30 MG/ML 1 ML VIAL IVP STA (12:36)
[2018-10-11] MEDS ORDERED: METOCLOPRAMIDE 5 MG/ML 2 ML VIAL IVP STA (12:36)
[2018-10-11] MEDS ORDERED: diphenhydrAMINE 50 MG/ML 1 ML VIAL IVP STA (12:38)
--- NOTE | 2018-10-11 13:08 | ED ---
General Adult HPI - General Chief complaint: Headache Stated complaint: migraine Source: patient, RN notes reviewed, old records reviewed Mode of arrival: ambulatory Limitations: no limitations - History of Present Illness Initial comments: 38-year-old female patient presents to ED with migraine headache. Patient has a long history of multiple sclerosis, migraine headaches. Patient was recently evaluated for headache on 10/10. Patient reports that yesterday in the ED she had partial relief of her headache however she states that this current headache has been present in differing severity levels since saturday. Patient states that her headache is located in her R rosemary frontal lobe. Pt reports that she woke up this AM and noticed the headache at approximately 4:00am. Patient has been experiencing nausea and vomiting, and has not taken her prescribed Migraine medication imitrex. Pt reports approximately 2 episodes of emesis today. Patient denies thunderclap. Patient denies rapid onset, states that this is the headache she has been experiencing last 3 days, waxing and waning in severity. Patient describes the headache as a pressure in her right perifrontal lobe. Patient reports photosensitivity. Patient reports some minor blurring of vision that has resolved, patient states that this is typical for her headaches. Patient states that this headache is consistent with migraine headache she has had in past. Patient states that this is not the worst headache she has had in her life. Patient denies fever/chills. Patient denies neck pain, stiffness. Patient gets yearly MRIs for her multiple sclerosis, last in April which showed no new lesions. Patient denies chest pain , shortness of breath, heart palpitations, abdominal pain, dysuria. Systemic: Pt denies fatigue, myalgia, fever/chills, rash. Pt denies weakness, night sweats, weight loss. Neuro: Pt denies syncope or pre-syncope. HEENT: Pt denies ocular discharge or irritation, otalgia, rhinorrhea, pharyngitis or notable lymphadenopathy. Cardiopulmonary: Pt denies chest pain, SOB, heart palpitations, dyspnea on exertion. Abdominal/GI: Pt denies abdominal pain. : Pt denies dysuria, burning w/ urination, frequency/urgency. Denies new onset urinary or bowel incontinence. MSK: Pt denies myalgia, loss of strength or function in extremities. Patient denies paresthesias throughout body. - Related Data Home Medications Medication Instructions Recorded Confirmed Butalb/Acetaminophen/Caffeine 1 - 2 tab PO Q6H PRN 04/26/16 10/11/18 [Fioricet 50-325-40 mg Tablet] Lacosamide [Vimpat] 100 mg PO BID 04/26/16 10/11/18 SUMAtriptan SUCCINATE [Imitrex] 4 mg SQ DIRECTED PRN 07/09/16 10/11/18 Ergocalciferol (Vitamin D2) 50,000 unit PO TU 03/13/18 10/11/18 [Vitamin D2] Medroxyprogesterone Acetate 150 mg IM Q90D 03/13/18 10/11/18 [Depo-Provera] Propranolol HCl [Inderal LA] 120 mg PO HS 03/13/18 10/11/18 Venlafaxine HCl [Effexor XR] 150 mg PO HS 03/13/18 10/11/18 Acetaminophen [Tylenol] 650 mg PO Q4H PRN 07/31/18 10/11/18 Yhlwdfw-Htta-Ijgy [id number] 2 tab PO Q4HR PRN 07/31/18 10/11/18 [Excedrin] Folic Acid 0.4 mg PO DAILY 07/31/18 10/11/18 Ibuprofen [Motrin Ib] 800 mg PO Q8H PRN 07/31/18 10/11/18 Ondansetron [Zofran ODT] 8 mg PO Q12HR PRN 10/10/18 10/11/18 Previous Rx's Medication Instructions Recorded Aspirin 325 mg PO DAILY #30 tab 03/28/18 Ondansetron Odt [Zofran ODT] 4 mg PO Q8HR PRN #20 tab 10/11/18 Allergies Allergy/AdvReac Type Severity Reaction Status Date / Time Iodinated Contrast- Oral and Allergy Nausea & Verified 10/11/18 12:28 IV Dye Vomiting tramadol Allergy Rapid Verified 10/11/18 12:28 Heart Rate Review of Systems ROS Statement: Those systems with pertinent positive or pertinent negative responses have been documented in the HPI. ROS Other: All systems not noted in ROS Statement are negative. Past Medical History Past Medical History: Asthma, Musculoskeletal Disorder Additional Past Medical History / Comment(s): Sjogrens, migraines,MS History of Any Multi-Drug Resistant Organisms: None Reported Past Surgical History: Cholecystectomy, Orthopedic Surgery Additional Past Surgical History / Comment(s): ACL Past Psychological History: No Psychological Hx Reported Smoking Status: Never smoker Past Alcohol Use History: None Reported Past Drug Use History: None Reported General Exam - General Exam Comments Initial Comments: Constitutional: NAD, AOX3, Pt has pleasant affect. HEENT: NC/AT, trachea midline, neck supple, no lymphadenopathy. Posterior pharynx non erythematous, without exudates. External ears appear normal, without discharge. Mucous membranes moist. Eyes PERRLA, EOM intact. There is no scleral icterus. No pallor noted. Cardiopulmonary: RRR, no murmurs, rubs or gallops, no JVD noted. Lungs CTAB in anterior and posterior [place]. No peripheral edema. Abdominal exam: Abdomen soft and non-distended. Abdomen non-tender to palpation in all 4 quadrants. Bowel sounds active in LLQ. No hepatosplenomegaly. Neuro: CN II-XII intact. No nuchal rigidity. Kernig's and Brudzinski sign negative. Active full range of motion neck. Limitations: no limitations Course Vital Signs 10/11/18 10/11/18 12:25 14:06 Temperature 98.2 F 98.2 F Pulse Rate 97 88 Respiratory 18 18 Rate Blood Pressure 137/81 114/79 O2 Sat by Pulse 99 97 Oximetry Medical Decision Making - Medical Decision Making 38-year-old female patient presents to ED with migraine headache. Patient has a long history of multiple sclerosis, migraine headaches. Patient was recently evaluated for headache on 10/10. Patient reports that yesterday in the ED she had partial relief of her headache however she states that this current headache has been present in differing severity levels since saturday. Patient denies thunderclap. Patient denies rapid onset, states that this is the headache she has been experiencing last 3 days, waxing and waning in severity. Patient states that this is typical for her headaches. Patient states that this headache is consistent with migraine headache she has had in past. Patient states that this is not the worst headache she has had in her life. Patient denies fever/chills. Patient denies neck pain, stiffness. Patient gets yearly MRIs for her multiple sclerosis, last in April which showed no new lesions. Neuro exam was benign. Cardiopulmonary exam benign. Patient was given 500mL NS bolus, reglan, benadrly and toradol in the ED. Pt states that her headache has resolved. Pt states that she feels as if she is at her baseline. Pt states that she will take her rx headache medication as needed if headache returns. Pt given zofran for nausea as needed. Return parameters strictly discussed including, thunderclap headache, neck stiffness, new/different headache, or any other new complaints. Pt to f/u with PCP in 1-2 days. Pt scheduled to f/u with [facility] for MS. Case discussed with Dr Guerra. Disposition Clinical Impression: Migraine Disposition: HOME SELF-CARE Condition: Good Instructions: Migraine Headache (ED) Additional Instructions: Patient to adhere to previously discussed treatment plan and will take medication(s) as directed. Patient to follow up with PCP in 1-2 days. Patient to return to ED if symptoms do not improve. Prescriptions: Ondansetron Odt [Zofran ODT] 4 mg PO Q8HR PRN #20 tab PRN Reason: Nausea Is patient prescribed a controlled substance at d/c from ED?: No Referrals: Ras Wylie MD [Primary Care Provider] - 1-2 days Time of Disposition: 13:39
[2018-10-11 14:11] VITALS: BP 114/79; PULSE 88
== END 2018-10-11 14:11 | disposition home or self-care (01) ==
LOC: EC 12:10
DX: G43.909 Migraine, unspecified, not intractable, without status migrainosus (principal); G35 Multiple sclerosis; Z88.5 Allergy status to narcotic agent; Z91.041 Radiographic dye allergy status; Z79.3 Long term (current) use of hormonal contraceptives; Z79.899 Other long term (current) drug therapy
CPT/HCPCS: 99283; 96374; 96375 ×2; 96361; J1200; J2765; J1885

== ENCOUNTER 2018-11-20 01:00 | Emergency (ER) | payer MEDICAID ==
[2018-11-20 01:14] VITALS: TEMP 97.5
[2018-11-20] MEDS ORDERED: METOCLOPRAMIDE 5 MG/ML 2 ML VIAL IVP STA (02:53)
[2018-11-20] MEDS ORDERED: KETOROLAC 30 MG/ML 1 ML VIAL IVP STA (02:53)
[2018-11-20] MEDS ORDERED: SODIUM CHLORIDE 0.9% 1,000 ML IV ONE (02:53)
[2018-11-20] MEDS ORDERED: diphenhydrAMINE 50 MG/ML 1 ML VIAL IVP STA (02:53)
--- NOTE | 2018-11-20 02:56 | ED ---
Headache HPI - General Chief Complaint: Headache Stated Complaint: headache, vomiting Time Seen by Provider: 11/20/18 02:18 Mode of arrival: ambulatory Limitations: no limitations - History of Present Illness Initial Comments: This patient is a 38-year-old woman with history of headaches, who presents with complaint that she is having one of her typical headaches. The pain is frontal, pounding, constant and severe. She also feels the pain gets worse with bright light. There is a little better with the lights off. There is associated nausea. No neurologic symptoms. No neck pain or stiffness. No fever or chills. MD Complaint: "migraine" Onset/Timin -: hour(s) Onset Description: gradual Location: frontal Severity: severe Quality: aching, throbbing Consistency: constant Improves With: nothing Worsens With: light Context: occurred at rest Associated Symptoms: nausea - Related Data Home Medications Medication Instructions Recorded Confirmed Butalb/Acetaminophen/Caffeine 1 - 2 tab PO Q6H PRN 04/26/16 11/20/18 [Fioricet 50-325-40 mg Tablet] Lacosamide [Vimpat] 100 mg PO BID 04/26/16 11/20/18 SUMAtriptan SUCCINATE [Imitrex] 4 mg SQ DIRECTED PRN 07/09/16 11/20/18 Ergocalciferol (Vitamin D2) 50,000 unit PO TU 03/13/18 11/20/18 [Vitamin D2] Medroxyprogesterone Acetate 150 mg IM Q90D 03/13/18 11/20/18 [Depo-Provera] Propranolol HCl [Inderal LA] 120 mg PO HS 03/13/18 11/20/18 Venlafaxine HCl [Effexor XR] 150 mg PO HS 03/13/18 11/20/18 Acetaminophen [Tylenol] 650 mg PO Q4H PRN 07/31/18 11/20/18 Pxycqhh-Qnrp-Riup [id number] 2 tab PO Q4HR PRN 07/31/18 11/20/18 [Excedrin] Folic Acid 0.4 mg PO DAILY 07/31/18 11/20/18 Ibuprofen [Motrin Ib] 800 mg PO Q8H PRN 07/31/18 11/20/18 Ondansetron [Zofran ODT] 8 mg PO Q12HR PRN 10/10/18 11/20/18 Previous Rx's Medication Instructions Recorded Aspirin 325 mg PO DAILY #30 tab 03/28/18 Ondansetron Odt [Zofran ODT] 4 mg PO Q8HR PRN #20 tab 10/11/18 Allergies Allergy/AdvReac Type Severity Reaction Status Date / Time Iodinated Contrast- Oral and Allergy Nausea & Verified 10/11/18 12:28 IV Dye Vomiting tramadol Allergy Rapid Verified 10/11/18 12:28 Heart Rate Review of Systems ROS Statement: Those systems with pertinent positive or pertinent negative responses have been documented in the HPI. ROS Other: All systems not noted in ROS Statement are negative. Constitutional: Denies: fever, chills, weakness Eyes: Denies: eye pain, vision change ENT: Denies: ear pain, hearing loss Respiratory: Denies: cough Gastrointestinal: Reports: nausea. Denies: abdominal pain, vomiting Neurological: Reports: headache. Denies: weakness, numbness, paresthesias, confusion, abnormal gait Past Medical History Past Medical History: Asthma, Musculoskeletal Disorder Additional Past Medical History / Comment(s): Sjogrens, migraines,MS History of Any Multi-Drug Resistant Organisms: None Reported Past Surgical History: Cholecystectomy, Orthopedic Surgery Additional Past Surgical History / Comment(s): ACL Past Psychological History: No Psychological Hx Reported Smoking Status: Never smoker Past Alcohol Use History: None Reported Past Drug Use History: None Reported General Exam Limitations: no limitations General appearance: alert, in no apparent distress Head exam: Present: atraumatic, normocephalic Eye exam: Present: normal appearance. Absent: scleral icterus, conjunctival injection Pupils: Present: other (Unable to perform funduscopic exam secondary to photophobia) ENT exam: Present: normal oropharynx, mucous membranes moist Neck exam: Present: full ROM. Absent: meningismus Neurological exam: Present: alert, oriented X3, CN II-XII intact. Absent: motor sensory deficit Skin exam: Present: warm, dry, intact, normal color. Absent: rash Course Vital Signs 11/20/18 11/20/18 01:11 03:05 Temperature 97.5 F L Pulse Rate 68 98 Respiratory 16 20 Rate Blood Pressure 138/100 125/92 O2 Sat by Pulse 99 99 Oximetry Disposition Clinical Impression: Headache Disposition: HOME SELF-CARE Condition: Good Instructions: Acute Headache (ED) Is patient prescribed a controlled substance at d/c from ED?: No Referrals: Ras Wylie MD [Primary Care Provider] - 1-2 days
[2018-11-20 03:55] VITALS: BP 127/87; PULSE 74; RESP 16
== END 2018-11-20 03:57 | disposition home or self-care (01) ==
LOC: EC 01:00
DX: G43.909 Migraine, unspecified, not intractable, without status migrainosus (principal); Z79.82 Long term (current) use of aspirin; Z79.899 Other long term (current) drug therapy; Z88.5 Allergy status to narcotic agent; Z91.041 Radiographic dye allergy status
CPT/HCPCS: 99283; 96374; 96375 ×2; 96361; J1200; J2765; J1885

== ENCOUNTER 2018-12-26 18:48 | Emergency (ER) | payer MEDICAID ==
[2018-12-26] MEDS ORDERED: KETOROLAC 30 MG/ML 1 ML VIAL IVP STA (19:06)
[2018-12-26] MEDS ORDERED: diphenhydrAMINE 50 MG/ML 1 ML VIAL IVP STA (19:06)
[2018-12-26] MEDS ORDERED: METOCLOPRAMIDE 5 MG/ML 2 ML VIAL IVP STA (19:06)
[2018-12-26] MEDS ORDERED: SODIUM CHLORIDE 0.9% 1,000 ML IV STA (19:06)
[2018-12-26] MEDS ORDERED: MORPHINE SULFATE 4 MG/ML SYRINGE IVP STA (20:13)
--- NOTE | 2018-12-26 21:22 | ED ---
General Adult HPI - General Chief complaint: Headache Stated complaint: headache, vomiting Time Seen by Provider: 12/26/18 18:55 Source: patient, RN notes reviewed Mode of arrival: ambulatory Limitations: no limitations - History of Present Illness Initial comments: 38-year-old female with a past medical history of migraines, MS presents to the emergency department for a chief complaint of migraine headache times one day. Patient states this started this morning. Patient admits to photophobia. She states this headache feels exactly like her previous migraines. Patient admits to nausea and vomiting as well. Patient denies any difficulty walking or slurred speech. Patient has no other complaints at this time including shortness of breath, chest pain, abdominal pain, nausea or vomiting, headache, or visual changes. - Related Data Home Medications Medication Instructions Recorded Confirmed Butalb/Acetaminophen/Caffeine 1 - 2 tab PO Q6H PRN 04/26/16 12/26/18 [Fioricet 50-325-40 mg Tablet] SUMAtriptan SUCCINATE [Imitrex] 4 mg SQ DIRECTED PRN 07/09/16 12/26/18 Medroxyprogesterone Acetate 150 mg IM Q90D 03/13/18 12/26/18 [Depo-Provera] Propranolol HCl [Inderal LA] 120 mg PO HS 03/13/18 12/26/18 Venlafaxine HCl [Effexor XR] 150 mg PO HS 03/13/18 12/26/18 Ibuprofen [Motrin Ib] 800 mg PO Q8H PRN 07/31/18 12/26/18 Ondansetron [Zofran ODT] 8 mg PO Q12HR PRN 10/10/18 12/26/18 Cholecalciferol [Vitamin D3] 1,000 unit PO DAILY 12/26/18 12/26/18 SUMAtriptan SUCCINATE [Imitrex] 100 mg PO DIRECTED 12/26/18 12/26/18 Previous Rx's Medication Instructions Recorded Ondansetron Odt [Zofran ODT] 4 mg PO Q8HR PRN #20 tab 10/11/18 Allergies Allergy/AdvReac Type Severity Reaction Status Date / Time Iodinated Contrast- Oral and Allergy Nausea & Verified 12/26/18 19:03 IV Dye Vomiting tramadol Allergy Rapid Verified 12/26/18 19:03 Heart Rate Review of Systems ROS Statement: Those systems with pertinent positive or pertinent negative responses have been documented in the HPI. ROS Other: All systems not noted in ROS Statement are negative. Past Medical History Past Medical History: Asthma, Musculoskeletal Disorder Additional Past Medical History / Comment(s): Sjogrens, migraines,MS History of Any Multi-Drug Resistant Organisms: None Reported Past Surgical History: Cholecystectomy, Orthopedic Surgery Additional Past Surgical History / Comment(s): ACL Past Psychological History: No Psychological Hx Reported Smoking Status: Never smoker Past Alcohol Use History: None Reported Past Drug Use History: None Reported General Exam Limitations: no limitations General appearance: alert, in no apparent distress Head exam: Present: atraumatic, normocephalic, normal inspection Eye exam: Present: normal appearance, PERRL, EOMI. Absent: scleral icterus, conjunctival injection, periorbital swelling ENT exam: Present: normal exam, mucous membranes moist Neck exam: Present: normal inspection, full ROM. Absent: tenderness, meningismus, lymphadenopathy Respiratory exam: Present: normal lung sounds bilaterally. Absent: respiratory distress, wheezes, rales, rhonchi, stridor Cardiovascular Exam: Present: regular rate, normal rhythm, normal heart sounds. Absent: systolic murmur, diastolic murmur, rubs, gallop, clicks Neurological exam: Present: alert, oriented X3, CN II-XII intact, normal gait Expanded Patient oriented to: Present: person, place, time Speech: Present: fluid speech Cranial nerves: EOM's Intact: Normal, Tongue Deviation: Normal, Nystagmus: Normal, Facial Sensation: Normal Sensory exam: Upper Extremity Light Touch: Normal, Upper Extremity Pin Prick: Normal, Lower Extremity Light Touch: Normal, Lower Extremity Pin Prick: Normal Motor strength exam: RUE: 5, LUE: 5, RLE: 5, LLE: 5 Eye Response: (4) open spontaneously Motor Response: (6) obeys commands Verbal Response: (5) oriented [place] Total: 15 Psychiatric exam: Present: normal affect, normal mood Course Vital Signs 12/26/18 18:51 Temperature 98.1 F Pulse Rate 103 H Respiratory 20 Rate Blood Pressure 143/84 O2 Sat by Pulse 100 Oximetry Medical Decision Making - Medical Decision Making 38 year old female presents to the emergency department for a chief complaint of headache. Patient states this feels exactly like previous migraines. Patient admits to photophobia as well as nausea vomiting. No focal neuro deficits. Patient initially given IV hydration, Toradol, Reglan and Benadryl. Pain was helped somewhat but not significantly. Patient was then given 2 mg of morphine which she states has significant helped her pain. Patient states she is ready to go home. Patient will follow up with primary care and neurology in 1-2 days. She does have a neurologist. She'll return here if she has any worsening symptoms. Disposition Clinical Impression: Migraine Disposition: HOME SELF-CARE Condition: Good Instructions (If sedation given, give patient instructions): Acute Headache (ED ), Migraine Headache (ED) Additional Instructions: Please follow up with primary care and neurology in 1-2 days. Please return to the emergency department if you have any worsening symptoms. Is patient prescribed a controlled substance at d/c from ED?: No Referrals: Ras Wylie MD [Primary Care Provider] - 1-2 days Time of Disposition: 21:17
[2018-12-26 21:36] VITALS: BP 125/84; PULSE 84; RESP 16; TEMP 98
== END 2018-12-26 21:39 | disposition home or self-care (01) ==
LOC: EC 18:48
DX: G43.909 Migraine, unspecified, not intractable, without status migrainosus (principal); Z79.899 Other long term (current) drug therapy; Z88.5 Allergy status to narcotic agent; Z91.041 Radiographic dye allergy status
CPT/HCPCS: 99283; 96374; 96375 ×3; 96361 ×2; J2270; J1200; J2765; J1885

== ENCOUNTER 2019-02-23 17:23 | Emergency (ER) | payer MEDICAID, OTHER ==
[2019-02-23 17:37] VITALS: RESP 18
[2019-02-23] MEDS ORDERED: ACETAMINOPHEN TAB 500 MG TAB PO STA (18:44)
[2019-02-23] MEDS ORDERED: KETOROLAC 30 MG/ML 1 ML VIAL IVP STA (18:45)
[2019-02-23] MEDS ORDERED: METOCLOPRAMIDE 5 MG/ML 2 ML VIAL IVP STA (18:45)
[2019-02-23] MEDS ORDERED: SODIUM CHLORIDE 0.9% 1,000 ML IV STA (18:45)
[2019-02-23] MEDS ORDERED: diphenhydrAMINE 50 MG/ML 1 ML VIAL IVP STA (18:45)
--- NOTE | 2019-02-23 18:55 | ED ---
Headache HPI - General Chief Complaint: Headache Stated Complaint: Headache Time Seen by Provider: 02/23/19 18:24 Source: RN notes reviewed, old records reviewed Mode of arrival: ambulatory Limitations: no limitations - History of Present Illness Initial Comments: Patient is a 38-year-old female presents emergency department today with migraine headache. She reports she started to have symptoms over the weekend. She states she's had some vomiting episodes today. She denies any abdominal pain and pain or neck pain. Patient states that she feels warm. On reevaluation patient's temperature was 100.1. Patient states that she has some sinus pressure and congestion. History of sick contacts with upper respiratory symptoms. She denies cough. Patient states that she usually has a history of migraines. Last migraine was in November. Patient states that she usually has relief after Toradol Reglan and Benadryl. - Related Data Home Medications Medication Instructions Recorded Confirmed Butalb/Acetaminophen/Caffeine 1 - 2 tab PO Q6H PRN 04/26/16 02/23/19 [Fioricet 50-325-40 mg Tablet] SUMAtriptan SUCCINATE [Imitrex] 4 mg SQ DIRECTED PRN 07/09/16 02/23/19 Medroxyprogesterone Acetate 150 mg IM Q90D 03/13/18 02/23/19 [Depo-Provera] Ibuprofen [Motrin Ib] 800 mg PO Q8H PRN 07/31/18 02/23/19 Cholecalciferol [Vitamin D3] 1,000 unit PO DAILY 12/26/18 02/23/19 SUMAtriptan SUCCINATE [Imitrex] 100 mg PO DIRECTED PRN 12/26/18 02/23/19 Galcanezumab-Gnlm [Emgality] 120 mg SQ Q30D 02/23/19 02/23/19 Ondansetron HCl [Zofran] 4 mg PO Q8H PRN 02/23/19 02/23/19 Previous Rx's Medication Instructions Recorded Amoxic-Pot Clav 875-125Mg 1 tab PO Q12HR #20 tablet 02/23/19 [Augmentin 875-125] Allergies Allergy/AdvReac Type Severity Reaction Status Date / Time Iodinated Contrast- Oral and Allergy Nausea & Verified 02/23/19 18:32 IV Dye Vomiting tramadol Allergy Rapid Verified 02/23/19 18:32 Heart Rate Review of Systems ROS Statement: Those systems with pertinent positive or pertinent negative responses have been documented in the HPI. ROS Other: All systems not noted in ROS Statement are negative. Past Medical History Past Medical History: Asthma, Musculoskeletal Disorder Additional Past Medical History / Comment(s): Sjogrens, migraines,MS History of Any Multi-Drug Resistant Organisms: None Reported Past Surgical History: Cholecystectomy, Orthopedic Surgery Additional Past Surgical History / Comment(s): ACL Past Psychological History: No Psychological Hx Reported Smoking Status: Never smoker Past Alcohol Use History: None Reported Past Drug Use History: None Reported General Exam - General Exam Comments Initial Comments: Pleasant 38-year-old female. Alert and oriented 3. Patient appears in no significant distress. Limitations: no limitations General appearance: alert, in no apparent distress Head exam: Present: atraumatic, normocephalic, normal inspection Eye exam: Present: normal appearance, PERRL, EOMI. Absent: scleral icterus, conjunctival injection, periorbital swelling ENT exam: Present: normal exam, mucous membranes moist Neck exam: Present: normal inspection, full ROM, other (Negative Kernig's and Brudzinski's sign.). Absent: tenderness, meningismus, lymphadenopathy Respiratory exam: Present: normal lung sounds bilaterally. Absent: respiratory distress, wheezes, rales, rhonchi, stridor Cardiovascular Exam: Present: regular rate, normal rhythm, normal heart sounds. Absent: systolic murmur, diastolic murmur, rubs, gallop, clicks GI/Abdominal exam: Present: soft, normal bowel sounds. Absent: distended, tenderness, guarding, rebound, rigid Extremities exam: Present: normal inspection, full ROM, normal capillary refill. Absent: tenderness, pedal edema, joint swelling, calf tenderness Back exam: Present: normal inspection Neurological exam: Present: alert, oriented X3, CN II-XII intact Psychiatric exam: Present: normal affect, normal mood Skin exam: Present: warm, dry, intact, normal color. Absent: rash Course Vital Signs 02/23/19 17:34 Temperature 98.7 F Pulse Rate 104 H Respiratory 18 Rate Blood Pressure 139/82 O2 Sat by Pulse 97 Oximetry - Reevaluation(s) Reevaluation #1: 02/23/19 20:25 Patient is reevaluated this time. Resting comfortably in bed. She reports her headache is going away. Medical Decision Making - Medical Decision Making Patient is a 38-year-old female with history of migraine-like headache. She presened ED today with a fever 100.1. She has complained of some sinus congestion and pressure. She has no meningeal signs. Patient was given migraine cocktail and fluids. She states she's felt much better afterwards. She has no neurological deficits or any other complaints. I discussed the treatment Patient for acute sinus infection could possibly be viral. Patient agrees for prompt follow-up with her neurologist and primary care doctor. Questions were answered and return parameters were discussed. CBC influenza and CMP are all negative as well. - Lab Data Result diagrams: 02/23/19 19:28 02/23/19 19:28 Lab Results 02/23/19 02/23/19 02/23/19 Range/Units 19:10 19:28 19:28 WBC 7.3 (3.8-10.6) k/uL RBC 5.17 (3.80-5.40) m/uL Hgb 14.3 (11.4-16.0) gm/dL Hct 43.4 (34.0-46.0) % MCV 84.1 (80.0-100.0) fL MCH 27.7 (25.0-35.0) pg MCHC 33.0 (31.0-37.0) g/dL RDW 13.2 (11.5-15.5) % Plt Count 270 (150-450) k/uL Neutrophils % 75 % Lymphocytes % 17 % Monocytes % 5 % Eosinophils % 2 % Basophils % 0 % Neutrophils # 5.5 (1.3-7.7) k/uL Lymphocytes # 1.3 (1.0-4.8) k/uL Monocytes # 0.4 (0-1.0) k/uL Eosinophils # 0.1 (0-0.7) k/uL Basophils # 0.0 (0-0.2) k/uL Sodium 141 (137-145) mmol/L Potassium 4.2 (3.5-5.1) mmol/L Chloride 107 (98-107) mmol/L Carbon Dioxide 23 (22-30) mmol/L Anion Gap 11 mmol/L BUN 12 (7-17) mg/dL Creatinine 0.54 (0.52-1.04) mg/dL Est GFR (CKD-EPI)AfAm >90 (>60 ml/min/1.73 sqM) Est GFR (CKD-EPI)NonAf >90 (>60 ml/min/1.73 sqM) Glucose 98 (74-99) mg/dL Calcium 9.8 (8.4-10.2) mg/dL Total Bilirubin 0.5 (0.2-1.3) mg/dL AST 16 (14-36) U/L ALT 29 (9-52) U/L Alkaline Phosphatase 142 H (38-126) U/L Total Protein 8.1 (6.3-8.2) g/dL Albumin 4.7 (3.5-5.0) g/dL Influenza Type A RNA Not Detected (Not Detectd) Influenza Type B (PCR) Not Detected (Not Detectd) Disposition Clinical Impression: Migraine, Sinusitis Disposition: HOME SELF-CARE Condition: Good Instructions (If sedation given, give patient instructions): Acute Headache (ED) Additional Instructions: Patient advised to take Motrin Tylenol every few hours. Patient can completely anabiotic prescription. Follow-up with PCP. Return to the emergency department if any alarming signs or symptoms occur. Prescriptions: Amoxic-Pot Clav 875-125Mg [Augmentin 875-125] 1 tab PO Q12HR #20 tablet Is patient prescribed a controlled substance at d/c from ED?: No Referrals: Ras Wylie MD [Primary Care Provider] - 1-2 days Time of Disposition: 20:54
[2019-02-23 19:41] LABS: Basophils % (A) 0 %; Eosinophils # (A) 0.1 k/uL (0-0.7); Eosinophils % (A) 2 %; HCT 43.4 % (34.0-46.0); HGB 14.3 gm/dL (11.4-16.0); Lymphocytes # (A) 1.3 k/uL (1.0-4.8); Lymphocytes % (A) 17 %; MCH 27.7 pg (25.0-35.0); MCV 84.1 fL (80.0-100.0); Mean Platelet Volume 6.6; Monocytes # (A) 0.4 k/uL (0-1.0); Monocytes % (A) 5 %; Neutrophils # (A) 5.5 k/uL (1.3-7.7); Neutrophils % (A) 75 %; Platelet Count 270 k/uL (150-450); RBC 5.17 m/uL (3.80-5.40); RDW 13.2 % (11.5-15.5); WBC 7.3 k/uL (3.8-10.6)
[2019-02-23 19:54] LABS: ALT 29 U/L (9-52); AST 16 U/L (14-36); Albumin 4.7 g/dL (3.5-5.0); Alkaline Phosphatase 142 U/L (38-126); Anion Gap 11 mmol/L; Blood Urea Nitrogen 12 mg/dL (7-17); Calcium 9.8 mg/dL (8.4-10.2); Carbon Dioxide 23 mmol/L (22-30); Chloride 107 mmol/L (98-107); Glucose 98 mg/dL (74-99); Potassium 4.2 mmol/L (3.5-5.1); Sodium 141 mmol/L (137-145); Total Bilirubin 0.5 mg/dL (0.2-1.3); Total Protein 8.1 g/dL (6.3-8.2)
[2019-02-23] MEDS ORDERED: SODIUM CHLORIDE 0.9% 1,000 ML IV ONE (20:13)
[2019-02-23 21:43] VITALS: BP 122/74; PULSE 97; TEMP 98.8
== END 2019-02-23 21:43 | disposition home or self-care (01) ==
LOC: EC 17:23
DX: G43.909 Migraine, unspecified, not intractable, without status migrainosus (principal); J32.9 Chronic sinusitis, unspecified; Z79.3 Long term (current) use of hormonal contraceptives; Z79.899 Other long term (current) drug therapy; Z91.041 Radiographic dye allergy status; Z88.5 Allergy status to narcotic agent
CPT/HCPCS: 36415; 80053; 85025; 87502; 99284; 96374; 96375 ×2; 96361; J1200; J2765; J1885

== ENCOUNTER → 2019-06-08 | Outpatient (CLI) | payer OTHER ==
[2019-06-08 17:56] LABS: Basophils # (A) 0.1 k/uL (0-0.2); Basophils % (A) 1 %; Eosinophils # (A) 0.1 k/uL (0-0.7); Eosinophils % (A) 2 %; HCT 39.6 % (34.0-46.0); HGB 13.2 gm/dL (11.4-16.0); Lymphocytes # (A) 1.8 k/uL (1.0-4.8); Lymphocytes % (A) 30 %; MCH 28.1 pg (25.0-35.0); MCHC 33.4 g/dL (31.0-37.0); Mean Platelet Volume 7.4; Monocytes # (A) 0.4 k/uL (0-1.0); Monocytes % (A) 7 %; Neutrophils # (A) 3.4 k/uL (1.3-7.7); Neutrophils % (A) 57 %; Platelet Count 219 k/uL (150-450); RBC 4.71 m/uL (3.80-5.40); RDW 13.5 % (11.5-15.5)
[2019-06-09 01:17] LABS: HIV 1 AB Non-Reactive (Non-Reactive); HIV AB P24 Non-Reactive (Non-Reactive); HIV P24 AG Non-Reactive (Non-Reactive)
[2019-06-09 01:35] LABS: Vitamin D 25 Hydroxy 15.7 ng/mL (30.0-100.0)
[2019-06-09 01:36] LABS: Folate, Serum 7.8 ng/mL
[2019-06-09 01:41] LABS: African American GFR (CKD) 109.2 (60.0-200.0); Albumin 4.5 g/dL (3.80-4.90); Albumin/Globulin Ratio 1.96 (1.60-3.17); Anion Gap 10.5 mmol/L (4.00-12.00); BUN/Creat Ratio 23.75 Ratio (12.00-20.00); Calcium 9.1 mg/dL (8.7-10.3); Carbon Dioxide 20.5 mmol/L (21.6-31.8); Globulin 2.3 g/dL (1.6-3.3); Potassium 3.9 mmol/L (3.5-5.5); Total Bilirubin 0.2 mg/dL (0.3-1.2); Total Protein 6.8 g/dL (6.2-8.2)
[2019-06-09 01:48] LABS: T4, Free (Free Thyroxine) 1.1 ng/dL (0.80-1.80)
[2019-06-09 02:02] LABS: Hemoglobin A1C 5.3 % (4.0-6.0); Hepatitis B Core IgM Non-Reactive (Non-Reactive); Hepatitis B Surface AB- Quant 3.5 mIU/mL; Hepatitis C IgG Antibody Non-Reactive (Non-Reactive)
[2019-06-10 07:31] LABS: Vit B1(Thiamine) 70 ug/L (38-122)
== END | disposition home or self-care (01) ==
LOC: LABWHC1 17:31
PROVIDERS: ATTEND Psychiatry & Neurology Pain Medicine
DX: G35 Multiple sclerosis (principal)
CPT/HCPCS: 36415; 80053; 82306; 82607; 82746; 83036; 84207; 84425; 84439; 84443; 84481; 84591; 85025; 86705; 86706; 86787; 86803; 87340; 87390

== ENCOUNTER 2019-06-27 21:51 | Emergency (ER) | payer MEDICAID, OTHER ==
[2019-06-27 22:03] VITALS: RESP 18; TEMP 98.4
[2019-06-27] MEDS ORDERED: SODIUM CHLORIDE 0.9% 1,000 ML IV ONE (22:19)
[2019-06-27] MEDS ORDERED: KETOROLAC 30 MG/ML 1 ML VIAL IVP STA (22:19)
[2019-06-27] MEDS ORDERED: METOCLOPRAMIDE 5 MG/ML 2 ML VIAL IVP STA (22:19)
[2019-06-27] MEDS ORDERED: DEXAMETHASONE SOD PHOSPHATE 10 MG/ML 1 ML VIAL IV STA (22:19)
--- NOTE | 2019-06-27 22:36 | ED ---
Headache HPI - General Chief Complaint: Headache Stated Complaint: Migraine Time Seen by Provider: 06/27/19 22:00 Mode of arrival: ambulatory Limitations: no limitations - History of Present Illness Initial Comments: 39-year-old female patient with past medical history significant for multiple sclerosis, Sjogren's, and migraine headaches presents to the emergency department today for evaluation of headache. Patient states the pain is left- sided and surrounding the left eye. States she is sensitive to light and sound. States she has been nauseated but has not vomited. Symptoms have been present for the last 3-4 days. Patient states she has tried her Imitrex and Fioricet without relief. Patient denies any new symptoms with this headache. States her symptoms are consistent with her usual migraine pattern. She denies any head injury. Denies any fever or chills. Patient denies any recent rash, shortness breath, chest pain, abdominal pain, diarrhea, constipation, back pain, numbness, tingling, dizziness, weakness, hematuria, dysuria, urinary urgency, urinary frequency, or any other complaints. - Related Data Home Medications Medication Instructions Recorded Confirmed Butalb/Acetaminophen/Caffeine 1 - 2 tab PO Q6H PRN 04/26/16 02/23/19 [Fioricet 50-325-40 mg Tablet] SUMAtriptan SUCCINATE [Imitrex] 4 mg SQ DIRECTED PRN 07/09/16 02/23/19 Medroxyprogesterone Acetate 150 mg IM Q90D 03/13/18 02/23/19 [Depo-Provera] Ibuprofen [Motrin Ib] 800 mg PO Q8H PRN 07/31/18 02/23/19 Cholecalciferol [Vitamin D3] 1,000 unit PO DAILY 12/26/18 02/23/19 SUMAtriptan SUCCINATE [Imitrex] 100 mg PO DIRECTED PRN 12/26/18 02/23/19 Galcanezumab-Gnlm [Emgality] 120 mg SQ Q30D 02/23/19 02/23/19 Ondansetron HCl [Zofran] 4 mg PO Q8H PRN 02/23/19 02/23/19 Previous Rx's Medication Instructions Recorded Amoxic-Pot Clav 875-125Mg 1 tab PO Q12HR #20 tablet 02/23/19 [Augmentin 875-125] Allergies Allergy/AdvReac Type Severity Reaction Status Date / Time Iodinated Contrast- Oral and Allergy Nausea & Verified 02/23/19 18:32 IV Dye Vomiting tramadol Allergy Rapid Verified 02/23/19 18:32 Heart Rate Review of Systems ROS Statement: Those systems with pertinent positive or pertinent negative responses have been documented in the HPI. ROS Other: All systems not noted in ROS Statement are negative. Past Medical History Past Medical History: Asthma, Musculoskeletal Disorder Additional Past Medical History / Comment(s): Sjogrens, migraines,MS History of Any Multi-Drug Resistant Organisms: None Reported Past Surgical History: Cholecystectomy, Orthopedic Surgery Additional Past Surgical History / Comment(s): ACL Past Psychological History: No Psychological Hx Reported Smoking Status: Never smoker Past Alcohol Use History: None Reported Past Drug Use History: None Reported General Exam Limitations: no limitations General appearance: alert, in no apparent distress, other (Physical well- developed, well-nourished adult female patient in no acute distress. Vital signs upon presentation are temperature 98.4F, pulse 86, respirations 18, blood pressure 135/95, pulse ox 100% on room air.) Eye exam: Present: normal appearance, PERRL, EOMI. Absent: scleral icterus, conjunctival injection, nystagmus, periorbital swelling ENT exam: Present: normal exam, normal oropharynx, mucous membranes moist Respiratory exam: Present: normal lung sounds bilaterally. Absent: respiratory distress, wheezes, rales, rhonchi, stridor Cardiovascular Exam: Present: regular rate, normal rhythm, normal heart sounds. Absent: systolic murmur, diastolic murmur, rubs, gallop, clicks GI/Abdominal exam: Present: soft, normal bowel sounds. Absent: distended, tenderness, guarding, rebound, rigid Neurological exam: Present: alert, oriented X3, CN II-XII intact, normal gait, other (Strength in all 4 extremities is 5/5.) Psychiatric exam: Present: normal affect, normal mood Skin exam: Present: warm, dry, intact, normal color. Absent: rash Course Vital Signs 06/27/19 06/28/19 22:00 00:00 Temperature 98.4 F Pulse Rate 86 103 H Respiratory 18 18 Rate Blood Pressure 135/95 133/88 O2 Sat by Pulse 100 99 Oximetry Medical Decision Making - Medical Decision Making 39-year-old female patient presented to the emergency department today for evaluation of migraine headache. Patient is a history of migraine headache and her current symptoms are consistent with her usual migraine pattern. Physical examination is unremarkable. She is neurologically intact with no focal deficits. She was given IV medications and IV fluids. Upon reevaluation she d oes report improvement of symptoms and is requesting discharge home. She is instructed to follow-up with her primary care physician for recheck in 1-2 days. Return parameters were discussed in detail. She verbalizes understanding and agrees with this plan. Disposition Clinical Impression: Migraine headache Disposition: HOME SELF-CARE Condition: Good Instructions (If sedation given, give patient instructions): Migraine Headache (ED) Additional Instructions: Increase fluids. Rest. Follow up with your primary care physician for recheck in 1-2 days. Return to the emergency department immediately for any new, worsening, or concerning symptoms. Is patient prescribed a controlled substance at d/c from ED?: No Referrals: None,Stated [Primary Care Provider] - 1-2 days Time of Disposition: 00:21
[2019-06-27] MEDS ORDERED: DIAZEPAM 5 MG/ML 2 ML INJ IVP STA (23:36)
[2019-06-28 00:01] VITALS: BP 133/88; PULSE 103
== END 2019-06-28 00:30 | disposition home or self-care (01) ==
LOC: EC 21:51
DX: G43.909 Migraine, unspecified, not intractable, without status migrainosus (principal); Z79.899 Other long term (current) drug therapy; Z88.5 Allergy status to narcotic agent; Z91.041 Radiographic dye allergy status
CPT/HCPCS: 99283; 96374; 96375 ×3; 96361; J1100; J2765; J3360; J1885

== ENCOUNTER → 2019-09-17 | Outpatient (CLI) | payer OTHER | END | disposition home or self-care (01) | LOC: LABWHC1 16:33 | PROVIDERS: ATTEND Psychiatry & Neurology Pain Medicine | DX: E55.9 Vitamin D deficiency, unspecified (principal) | CPT/HCPCS: 36415; 82306 ==

== ENCOUNTER 2019-10-23 00:14 | Emergency (ER) | payer OTHER ==
[2019-10-23 00:19] VITALS: RESP 18; TEMP 97.9
[2019-10-23] MEDS ORDERED: SODIUM CHLORIDE 0.9% 500 ML 500 ML IV STA (00:36)
[2019-10-23] MEDS ORDERED: KETOROLAC 30 MG/ML 1 ML VIAL IVP STA (00:36)
[2019-10-23] MEDS ORDERED: METOCLOPRAMIDE 5 MG/ML 2 ML VIAL IVP STA (00:36)
--- NOTE | 2019-10-23 00:41 | ED ---
Headache HPI - General Chief Complaint: Headache Stated Complaint: Migraine Time Seen by Provider: 10/23/19 00:22 Mode of arrival: ambulatory Limitations: no limitations - History of Present Illness MD Complaint: headache -: days(s) Onset Description: gradual Location: frontal Severity: severe Quality: aching, throbbing, similar to previous headaches Consistency: constant Improves With: nothing Worsens With: light Context: occurred at rest Associated Symptoms: nausea - Related Data Home Medications Medication Instructions Recorded Confirmed Butalb/Acetaminophen/Caffeine 1 - 2 tab PO Q6H PRN 04/26/16 02/23/19 [Fioricet 50-325-40 mg Tablet] SUMAtriptan SUCCINATE [Imitrex] 4 mg SQ DIRECTED PRN 07/09/16 02/23/19 Medroxyprogesterone Acetate 150 mg IM Q90D 03/13/18 02/23/19 [Depo-Provera] Ibuprofen [Motrin Ib] 800 mg PO Q8H PRN 07/31/18 02/23/19 Cholecalciferol [Vitamin D3] 1,000 unit PO DAILY 12/26/18 02/23/19 SUMAtriptan SUCCINATE [Imitrex] 100 mg PO DIRECTED PRN 12/26/18 02/23/19 Galcanezumab-Gnlm [Emgality] 120 mg SQ Q30D 02/23/19 02/23/19 Ondansetron HCl [Zofran] 4 mg PO Q8H PRN 02/23/19 02/23/19 Allergies Allergy/AdvReac Type Severity Reaction Status Date / Time Iodinated Contrast Media Allergy Nausea & Verified 02/23/19 18:32 [Iodinated Contrast- Oral Vomiting and IV Dye] tramadol Allergy Rapid Verified 02/23/19 18:32 Heart Rate Review of Systems ROS Statement: Those systems with pertinent positive or pertinent negative responses have been documented in the HPI. ROS Other: All systems not noted in ROS Statement are negative. Constitutional: Denies: fever, chills, weakness Eyes: Denies: vision change ENT: Denies: congestion Respiratory: Denies: cough Gastrointestinal: Reports: nausea. Denies: abdominal pain Musculoskeletal: Denies: back pain Neurological: Reports: headache. Denies: weakness, numbness, paresthesias, confusion Past Medical History Past Medical History: Asthma, Musculoskeletal Disorder Additional Past Medical History / Comment(s): Sjogrens, migraines,MS History of Any Multi-Drug Resistant Organisms: None Reported Past Surgical History: Cholecystectomy, Orthopedic Surgery Additional Past Surgical History / Comment(s): ACL Past Psychological History: No Psychological Hx Reported Smoking Status: Never smoker Past Alcohol Use History: None Reported Past Drug Use History: None Reported General Exam Limitations: no limitations General appearance: alert, in no apparent distress Head exam: Present: atraumatic, normocephalic Eye exam: Present: normal appearance, EOMI. Absent: scleral icterus, conjunctival injection ENT exam: Present: normal oropharynx Neck exam: Present: normal inspection, full ROM. Absent: meningismus Neurological exam: Present: alert, oriented X3, normal gait. Absent: motor sensory deficit Skin exam: Present: warm, dry, intact, normal color. Absent: rash Course Vital Signs 10/23/19 00:17 Temperature 97.9 F Pulse Rate 93 Respiratory 18 Rate Blood Pressure 135/90 O2 Sat by Pulse 97 Oximetry Disposition Clinical Impression: Headache Disposition: HOME SELF-CARE Condition: Good Instructions (If sedation given, give patient instructions): Acute Headache (ED) Is patient prescribed a controlled substance at d/c from ED?: No Referrals: None,Stated [Primary Care Provider] - 1-2 days
[2019-10-23 02:25] VITALS: BP 130/92; PULSE 72
== END 2019-10-23 02:24 | disposition home or self-care (01) ==
LOC: EC 00:14
DX: R51 Headache (principal); R11.0 Nausea; H53.149 Visual discomfort, unspecified; G35 Multiple sclerosis; Z88.5 Allergy status to narcotic agent; Z91.041 Radiographic dye allergy status; Z79.3 Long term (current) use of hormonal contraceptives; Z79.899 Other long term (current) drug therapy; Z86.69 Personal history of other diseases of the nervous system and sense organs
CPT/HCPCS: 96361; 96374; 96375; 99283

== ENCOUNTER 2019-11-30 19:12 | Emergency (ER) | payer OTHER ==
[2019-11-30 19:43] VITALS: RESP 16
[2019-11-30 19:44] VITALS: PULSE 89
[2019-11-30] MEDS ORDERED: DEXAMETHASONE SOD PHOSPHATE 10 MG/ML 1 ML VIAL IV STA (19:58)
[2019-11-30] MEDS ORDERED: SODIUM CHLORIDE 0.9% 1,000 ML IV STA (19:58)
[2019-11-30] MEDS ORDERED: METOCLOPRAMIDE 5 MG/ML 2 ML VIAL IVP STA (19:58)
[2019-11-30] MEDS ORDERED: KETOROLAC 30 MG/ML 1 ML VIAL IVP STA (19:58)
--- NOTE | 2019-11-30 20:03 | ED ---
General Adult HPI - General Chief complaint: Headache Stated complaint: migraine Time Seen by Provider: 11/30/19 19:49 Source: patient, RN notes reviewed Mode of arrival: ambulatory Limitations: no limitations - History of Present Illness Initial comments: 39-year-old female with a past medical history of asthma, migraines, MS presents to the emergency department for a chief complaint of migraine 5 days. Patient states this is consistent with previous migraines. States she is having photosensitivity as well as nausea vomiting with this. Denies any characteristics that are abnormal for her. Denies any neck stiffness or fevers. Denies thunderclap characterization or maximal intensity at onset.Patient has no other complaints at this time including shortness of breath, chest pain, abdominal pain, nausea or vomiting, headache, or visual changes. - Related Data Home Medications Medication Instructions Recorded Confirmed Butalb/Acetaminophen/Caffeine 1 - 2 tab PO Q8H PRN 04/26/16 11/30/19 [Fioricet 50-325-40 mg Tablet] Medroxyprogesterone Acetate 150 mg IM Q90D 03/13/18 11/30/19 [Depo-Provera] Galcanezumab-Gnlm [Emgality] 120 mg SQ Q30D 02/23/19 11/30/19 Ondansetron HCl [Zofran] 4 mg PO BID PRN 02/23/19 11/30/19 Ergocalciferol [Vitamin D2] 50,000 unit PO WE 11/30/19 11/30/19 Glatiramer Acetate 40 mg SQ MOWEFR 11/30/19 11/30/19 Ketorolac [Toradol] 10 mg PO DAILY PRN 11/30/19 11/30/19 Prochlorperazine [Compazine] 10 mg PO Q6H PRN 11/30/19 11/30/19 Zonisamide [Zonegran] 100 mg PO DAILY 11/30/19 11/30/19 Allergies Allergy/AdvReac Type Severity Reaction Status Date / Time Iodinated Contrast Media Allergy Nausea & Verified 11/30/19 20:43 [Iodinated Contrast- Oral Vomiting and IV Dye] tramadol Allergy Rapid Verified 11/30/19 20:43 Heart Rate Review of Systems ROS Statement: Those systems with pertinent positive or pertinent negative responses have been documented in the HPI. ROS Other: All systems not noted in ROS Statement are negative. Past Medical History Past Medical History: Asthma, Musculoskeletal Disorder Additional Past Medical History / Comment(s): Sjogrens, migraines,MS History of Any Multi-Drug Resistant Organisms: None Reported Past Surgical History: Cholecystectomy, Orthopedic Surgery Additional Past Surgical History / Comment(s): ACL Past Psychological History: No Psychological Hx Reported Smoking Status: Never smoker Past Alcohol Use History: None Reported Past Drug Use History: None Reported General Exam Limitations: no limitations General appearance: alert, in no apparent distress Head exam: Present: atraumatic, normocephalic, normal inspection Eye exam: Present: normal appearance, PERRL, EOMI. Absent: scleral icterus, conjunctival injection, periorbital swelling ENT exam: Present: normal exam, mucous membranes moist Neck exam: Present: normal inspection, full ROM. Absent: tenderness, meningismus, lymphadenopathy Respiratory exam: Present: normal lung sounds bilaterally. Absent: respiratory distress, wheezes, rales, rhonchi, stridor Cardiovascular Exam: Present: regular rate, normal rhythm, normal heart sounds. Absent: systolic murmur, diastolic murmur, rubs, gallop, clicks GI/Abdominal exam: Present: normal bowel sounds Neurological exam: Present: alert, oriented X3, normal gait Course Vital Signs 11/30/19 19:41 Temperature 98.4 F Pulse Rate 89 Respiratory 16 Rate Blood Pressure 128/91 O2 Sat by Pulse 98 Oximetry Medical Decision Making - Medical Decision Making Patient given migraine cocktail, feeling much better at this time. Patient was discharged home. She'll follow up with primary care in 1-2 days. She'll return if she has any worsening symptoms. Disposition Clinical Impression: Headache, Migraine Disposition: HOME SELF-CARE Condition: Good Instructions (If sedation given, give patient instructions): Acute Headache (ED) Additional Instructions: Please follow up with primary care in 1-2 days. Please return here to the emergency department if you have any worsening symptoms. Is patient prescribed a controlled substance at d/c from ED?: No Referrals: Den Delgado MD [REFERRING] - 1-2 days Time of Disposition: 20:56
[2019-11-30] MEDS ORDERED: DIAZEPAM 5 MG/ML 2 ML INJ IVP STA (20:53)
[2019-11-30 21:05] VITALS: BP 140/98; TEMP 98.7
== END 2019-11-30 21:23 | disposition home or self-care (01) ==
LOC: EC 19:12
DX: G43.909 Migraine, unspecified, not intractable, without status migrainosus (principal); G35 Multiple sclerosis; M35.00 Sjogren syndrome, unspecified; Z88.5 Allergy status to narcotic agent; Z91.041 Radiographic dye allergy status; Z79.3 Long term (current) use of hormonal contraceptives; Z79.899 Other long term (current) drug therapy
CPT/HCPCS: 99283; 96374; 96375 ×3; 96361; J1100; J2765; J3360; J1885

== ENCOUNTER 2020-01-31 00:18 | Emergency (ER) | payer OTHER ==
[2020-01-31 00:22] VITALS: RESP 18
[2020-01-31] MEDS ORDERED: SODIUM CHLORIDE 0.9% 1,000 ML IV ONE (00:49)
[2020-01-31] MEDS ORDERED: KETOROLAC 30 MG/ML 1 ML VIAL IVP STA (00:49)
[2020-01-31] MEDS ORDERED: METOCLOPRAMIDE 5 MG/ML 2 ML VIAL IVP STA (00:49)
--- NOTE | 2020-01-31 00:56 | ED ---
Headache HPI - General Chief Complaint: Headache Stated Complaint: Migraine Time Seen by Provider: 01/31/20 00:40 Mode of arrival: ambulatory Limitations: no limitations - History of Present Illness MD Complaint: "migraine" Onset/Timin -: days(s) Onset Description: gradual Quality: aching Consistency: constant Improves With: nothing Worsens With: none Context: occurred at rest Associated Symptoms: photophobia - Related Data Home Medications Medication Instructions Recorded Confirmed Butalb/Acetaminophen/Caffeine 1 - 2 tab PO Q8H PRN 04/26/16 11/30/19 [Fioricet 50-325-40 mg Tablet] Medroxyprogesterone Acetate 150 mg IM Q90D 03/13/18 11/30/19 [Depo-Provera] Galcanezumab-Gnlm [Emgality] 120 mg SQ Q30D 02/23/19 11/30/19 Ondansetron HCl [Zofran] 4 mg PO BID PRN 02/23/19 11/30/19 Ergocalciferol [Vitamin D2] 50,000 unit PO WE 11/30/19 11/30/19 Glatiramer Acetate 40 mg SQ MOWEFR 11/30/19 11/30/19 Ketorolac [Toradol] 10 mg PO DAILY PRN 11/30/19 11/30/19 Prochlorperazine [Compazine] 10 mg PO Q6H PRN 11/30/19 11/30/19 Zonisamide [Zonegran] 100 mg PO DAILY 11/30/19 11/30/19 Previous Rx's Medication Instructions Recorded Amoxicillin 875 mg PO Q12HR #14 tablet 01/31/20 Fluticasone Propionate [Flonase 1 spray EA NOSTRIL DAILY #1 each 01/31/20 Allergy Relief] Allergies Allergy/AdvReac Type Severity Reaction Status Date / Time Iodinated Contrast Media Allergy Nausea & Verified 01/31/20 00:23 [Iodinated Contrast- Oral Vomiting and IV Dye] tramadol Allergy Rapid Verified 01/31/20 00:23 Heart Rate Review of Systems ROS Statement: Those systems with pertinent positive or pertinent negative responses have been documented in the HPI. ROS Other: All systems not noted in ROS Statement are negative. Constitutional: Denies: fever, chills ENT: Reports: congestion Respiratory: Denies: cough, dyspnea Cardiovascular: Denies: chest pain, syncope Gastrointestinal: Reports: nausea. Denies: abdominal pain, vomiting, diarrhea Genitourinary: Denies: dysuria, hematuria Musculoskeletal: Denies: back pain Skin: Denies: rash Neurological: Reports: headache. Denies: weakness, numbness, paresthesias, confusion Past Medical History Past Medical History: Asthma, Musculoskeletal Disorder Additional Past Medical History / Comment(s): Sjogrens, migraines,MS History of Any Multi-Drug Resistant Organisms: None Reported Past Surgical History: Cholecystectomy, Orthopedic Surgery Additional Past Surgical History / Comment(s): ACL Past Psychological History: No Psychological Hx Reported Smoking Status: Never smoker Past Alcohol Use History: None Reported Past Drug Use History: None Reported General Exam Limitations: no limitations General appearance: alert Head exam: Present: atraumatic, normocephalic Eye exam: Present: normal appearance, EOMI. Absent: scleral icterus, conjunctival injection ENT exam: Present: normal oropharynx Neck exam: Present: normal inspection, full ROM. Absent: meningismus Extremities exam: Present: normal inspection, normal capillary refill Back exam: Present: normal inspection Neurological exam: Present: alert, oriented X3, CN II-XII intact. Absent: motor sensory deficit Skin exam: Present: warm, dry, intact, normal color. Absent: rash Course Vital Signs 01/31/20 00:21 Temperature 98.7 F Pulse Rate 94 Respiratory 18 Rate Blood Pressure 172/92 O2 Sat by Pulse 100 Oximetry Disposition Clinical Impression: Headache Disposition: HOME SELF-CARE Condition: Good Instructions (If sedation given, give patient instructions): Acute Headache (ED) Prescriptions: Amoxicillin 875 mg PO Q12HR #14 tablet Fluticasone Propionate [Flonase Allergy Relief] 1 spray EA NOSTRIL DAILY #1 each Is patient prescribed a controlled substance at d/c from ED?: No Referrals: Micki Rollins MD [Primary Care Provider] - 1-2 days
[2020-01-31 03:30] VITALS: BP 124/87; PULSE 91; TEMP 97.6
== END 2020-01-31 03:30 | disposition home or self-care (01) ==
LOC: EC 00:18
DX: R51 Headache (principal); H53.149 Visual discomfort, unspecified; G35 Multiple sclerosis; Z88.5 Allergy status to narcotic agent; Z91.041 Radiographic dye allergy status; Z79.3 Long term (current) use of hormonal contraceptives; Z79.899 Other long term (current) drug therapy; Z86.69 Personal history of other diseases of the nervous system and sense organs
CPT/HCPCS: 99283; 96374; 96375; 96361 ×2; J2765; J1885

== ENCOUNTER → 2020-08-23 | Outpatient (CLI) | payer OTHER | END | disposition home or self-care (01) | LOC: CPPFTMAIN 12:10 | PROVIDERS: ATTEND Internal Medicine Critical Care Medicine | DX: R06.09 Other forms of dyspnea (principal) | CPT/HCPCS: 94060; 94726; 94729 ==

== ENCOUNTER → 2021-08-31 | Outpatient (CLI) | payer OTHER ==
[2021-08-31 23:11] LABS: HCT 40.8 % (37.2-46.3); HGB 13.7 g/dL (12.0-15.0); MCH 28.7 pg (27.0-32.0); MCHC 33.6 g/dL (32.0-37.0); MCV 85.5 fL (80.0-97.0); Mean Platelet Volume 10.6 fL (9.5-12.2); Platelet Count 335 X 10*3/uL (140-440); RBC 4.77 X 10*6/uL (4.10-5.20); RDW 12.7 % (11.5-14.5); WBC 7.08 X 10*3/uL (4.50-10.00)
[2021-09-01 05:54] LABS: Varicella IgM Antibody 0.6 INDEX (<=0.90)
[2021-09-01 07:38] LABS: Hepatitis B Core IgM Nonreactive (Nonreactive); Hepatitis B Surface Antibody NonReactive (Nonreactive); Hepatitis B Surface Antigen Nonreactive (Nonreactive)
[2021-09-01 07:49] LABS: Calcium 9.4 mg/dL (8.7-10.3); Folate, Serum 6.8 ng/mL (4.40-31.00); T4, Free (Free Thyroxine) 1.11 ng/dL (0.800-1.800)
== END | disposition home or self-care (01) ==
LOC: LABWHC1 16:26
PROVIDERS: ATTEND Psychiatry & Neurology Neurology
DX: G35 Multiple sclerosis (principal)
CPT/HCPCS: 36415; 82306; 82310; 82607; 82746; 83036; 84207; 84425; 84439; 84443; 84481; 84591; 85027; 86705; 86706; 86787; 87340